=== PATIENT | male | born 1985 | race Caucasian/White ===

== ENCOUNTER 2019-09-18 19:24 | Inpatient (IN) | payer OTHER, MEDICAID ==
[~2019-09-18] VITALS: Ht 175.3 cm; Wt 78.0 kg
[~2019-09-18 19:24] MED LIST: GLYCOPYRROLATE 0.2 MG/ML VIAL ONE; LR 1,000 ML IV.SOLN IV ONE; MEPERIDINE HCL/PF 25 MG/ML DISP.SYRIN ONE; MIDAZOLAM HCL 5 MG/ML VIAL (VERSED) IV ONE; NEOSTIGMINE METHYLSULFATE 1 MG/ML, 10 ML VIAL ONE; NS IRRIG SOLN 1000 ML IR ONE; PROPOFOL 200MG/ 20ML VIAL (DIPRIVAN) IV ONE; ROCURONIUM BROMIDE 10 MG/ML (ZEMURON) ONE; SEVOFLURANE 15 MIN GAS INH ONE; fentaNYL CITRATE/PF 100 MCG/2 ML AMP ONE
[2019-09-18 20:00] VITALS: BP_SYST 122
--- NOTE | 2019-09-18 20:10 | NUR ---
Patient to ER bed 1 to gown for evaluation. Side rails up.
--- NOTE | 2019-09-18 20:20 | NUR ---
Dr. Bedoya bedside for pt eval
[2019-09-18] MEDS ORDERED: NACL 0.9% 1,000 ML IV ONE ×2 (20:25→21:27)
[2019-09-18] MEDS ORDERED: MORPHINE 4 MG/ML INJ. SYRINGE IVP ONE (20:30)
--- NOTE | 2019-09-18 20:30 | NUR ---
Pt LORE to ED with history of bipolar disorder, depression, and anxiety who was brought in by EMS from [facility] for evaluation of constipation for the past 2 weeks with recent nausea and vomiting today. The patient complains he has not had bowel movement in the last 2 weeks and has generalized abdominal distention and discomfort. He also reports several nonbloody/nonbilious vomiting episodes today. Per EMS, the patient voluntarily admitted himself to [facility] for SI. Upon examination, the patient was unable to account for his abdominal surgical scar
[2019-09-18 20:52] LABS: HEMOGLOBIN 16.5 g/dL (14.0-18.0)
[2019-09-18 20:56] LABS: HEMATOCRIT 47.5 % (36-54); MEAN CORPUSCULAR HEMOGLOBIN 29 pg (27-31); MEAN CORPUSCULAR HGB CONC 35 % (32-36); MEAN CORPUSCULAR VOLUME 83 fL (79.0-98.0); PLATELET COUNT (AUTO) 388 K/uL (130-430); RED BLOOD CELL COUNT(AUTO) 5.75 MIL/uL (4.2-6.2); RED CELL DISTRIBUTION WIDTH 14.1 % (9.0-15.0); WHITE BLOOD COUNT (AUTO) 23.1 K/uL (4.8-10.8)
[2019-09-18 21:03] LABS: INR 1.2 (0.80-1.20); PROTHROMBIN TIME 12.4 SECS (9.5-12.5)
[2019-09-18] MEDS ORDERED: CLINDAMYCIN 300 MG in D5W 50 ML IV ONE (21:30)
[2019-09-18] MEDS ORDERED: GENTAMICIN 120 mg/100 mL NS 100 ML IV ONE (21:30)
[2019-09-18] MEDS ORDERED: NS 1000 ML IV.SOLN IV ONE (21:30)
[2019-09-18 21:32] LABS: POTASSIUM 4.8 mmol/L (3.5-5.1)
[2019-09-18 21:33] LABS: CALCIUM 9.2 mg/dL (8.4-11.0)
[2019-09-18 21:34] LABS: CREATININE 2.56 mg/dL (0.55-1.30); TOTAL BILIRUBIN 0.7 mg/dL (0.0-1.0)
[2019-09-18 21:35] LABS: ALBUMIN 3.9 g/dL (3.4-4.8)
[2019-09-18] MEDS ORDERED: NACL 0.9% 1,000 ML IV SCH (21:44)
[2019-09-18] MEDS ORDERED: ACETAMINOPHEN 325 MG SUPP.RECT RC PRN (21:45)
[2019-09-18] MEDS ORDERED: ONDANSETRON HCL 4 MG/2 ML VIAL IVP PRN ×2 (21:45→23:15)
[2019-09-18] MEDS ORDERED: PANTOPRAZOLE SODIUM 40 MG/VIAL (PROTONIX) IVP ONE (21:45)
[2019-09-18] MEDS ORDERED: MOM PO (21:52)
[2019-09-18] MEDS ORDERED: VIS50 PO (21:52)
[2019-09-18] MEDS ORDERED: ESCI10TA PO (21:52)
[2019-09-18] MEDS ORDERED: OLAN20TA35 PO (21:52)
[2019-09-18] MEDS ORDERED: MAG-151 PO (21:52)
[2019-09-18] MEDS ORDERED: THOR25 PO (21:52)
[2019-09-18] MEDS ORDERED: ACET-2165 PO (21:52)
[2019-09-18] MEDS ORDERED: TRAZ-250 PO (21:52)
[2019-09-18] MEDS ORDERED: ACET325T53 PO (21:52)
[2019-09-18] MEDS ORDERED: LORA1TAB PO (21:52)
[2019-09-18] MEDS ORDERED: BEN50 PO (21:52)
[2019-09-18] MEDS ORDERED: PANT40TA4 PO (21:52)
--- NOTE | 2019-09-18 21:53 | NUR ---
Medication reconciliation completed with information provided by Juanita Sanchez. Any prior medication reconciliation on file was reviewed and corrected.
[2019-09-18] MEDS ORDERED: TOLVAPTAN 15 MG TABLET PO ONE (22:00)
--- NOTE | 2019-09-18 22:02 | NUR ---
Patient will be admitted to care of Dr. Lopez. Admitted to OR unit. Waiting surgical team. Belongings list completed. Complete and up to date summary report printed. SBAR report to be given at bedside with opportunity for questions.
[2019-09-18 22:05] LABS: ATYPICAL LYMPHOCYTES % 0 % (0-0); BAND % (MANUAL) 5 % (0-6); BASOPHILS % (MANUAL) 0 % (0-2); EOSINOPHILS % (MANUAL) 0 % (0-7); LYMPHOCYTES % (MANUAL) 7 % (20-46); MONOCYTES % (MANUAL) 7 % (0-11)
[2019-09-18] MEDS ORDERED: metroNIDAZOLE 500 mg/NS 100 ML IV SCH (22:15)
[2019-09-18] MEDS ORDERED: CLINDAMYCIN PHOSPHATE 300 MG/2 ML VIAL ONE (22:17)
[2019-09-18 22:36] LABS: CREATINE KINASE MB 5.7 ng/mL (0-3.6)
[2019-09-18 22:37] LABS: CKMB RELATIVE INDEX 1.2 (0.0-2.9)
[2019-09-18] MEDS ORDERED: fentaNYL CITRATE/PF 100 MCG/2 ML AMP IVP PRN (23:15)
[2019-09-19] VITALS (17 sets, daily range): BP systolic 113–160
[2019-09-19] MEDS ORDERED: ONDANSETRON HCL 4 MG/2 ML VIAL IVP PRN
[2019-09-19] MEDS: fentaNYL CITRATE/PF 100 MCG/2 ML AMP IVP PRN ×2 (00:31→00:41)
[2019-09-19] MEDS ORDERED: fentaNYL CITRATE/PF 100 MCG/2 ML AMP ONE (00:45)
--- NOTE | 2019-09-19 00:55 | NUR ---
ADMISSION NOTE Received patient from ER via [facility] under the care of Dr. Womack. Patient admitted with diagnosis of Ovarian Cyst. Patient is awake, alert, oriented X 4. Patient oriented to hospital room, call light, toileting, pain management and safety-teach back done. Patient informed that his nurse will be Melissa ALEXANDER and that their room number is 104A. Call light within reach. Will continue to monitor patient.
[2019-09-19] MEDS: MORPHINE 4 MG/ML INJ. SYRINGE IVP PRN ×6 (01:15→20:33)
--- NOTE | 2019-09-19 01:15 | NUR ---
PAIN MGT PATIENT MEDICATED WITH MORPHINE 4 MG FOR C/O ABDOMINAL PAIN ORDERED. VITAL SIGNS STABLE. ABDOMINAL DRESSING DRY AND INTACT NO BLEEDING NOTED. IVF NS @ 100 ML/HR INFUSING WITH IV LINE INTACT AND PATENT.
[2019-09-19] MEDS: NACL 0.9% 1,000 ML IV SCH ×3 (01:19→12:35)
[2019-09-19] MEDS ORDERED: metroNIDAZOLE 500 mg/NS 100 ML IV ONE (02:08)
[2019-09-19] MEDS: PIPERACILLIN/TAZO 3.375 GM in NS 50 ML IV SCH ×4 (02:09→18:24)
[2019-09-19] MEDS ORDERED: PIPERACILLIN/TAZOBACTAM 3.375 GM/VIAL (ZOSYN) IV ONE (02:09)
--- NOTE | 2019-09-19 03:00 | NUR ---
ATB PATIENT STARTED ON NEW ANTIBIOTIC ZOSYN AND FLAGYL ORDERED.
--- NOTE | 2019-09-19 04:30 | NUR ---
24 HR URINE 24 HOUR URINE COLLECTION FOR SODIUM STARTED ORDERED.
--- NOTE | 2019-09-19 04:58 | NUR ---
PAIN MGT PATIENT MEDICATED WITH MORPHINE FOR C/O ABDOMINAL PAIN. IV LINE INTACT AND PATENT.
--- NOTE | 2019-09-19 05:29 | NUR ---
Consultation Paged Reason for Consultation: ARF Severe Hyponatremia Was consult called:Y Person who was notified: Daphne Consulting Physician: David Hsieh Location Analyst Ordering Physician: Dr. Lopez
--- NOTE | 2019-09-19 05:38 | NUR ---
Consultation Paged Reason for Consultation: Suicidal, sent from [facility] Was consult called:Y Person who was notified: Daphne Consulting Physician: Dr. Melendrez Ordering Physician: Dr. Lopez
[2019-09-19 06:30] LABS: BILIRUBIN,URINE NEGATIVE (NEGATIVE); CLARITY/URINE CLEAR (CLEAR); COLOR,URINE YELLOW (YELLOW); GLUCOSE,URINE NEGATIVE (NEGATIVE); KETONES,URINE NEGATIVE (NEGATIVE); LEUKOCYTE ESTERASE ,URINE NEGATIVE (NEGATIVE); NITRITE, URINE NEGATIVE (NEGATIVE); PH,URINE 5.5 (5.0-8.0); PROTEIN URINE NEGATIVE (NEGATIVE); UROBILINOGEN,URINE 0.2 (0.2-1.0)
[2019-09-19 06:38] LABS: BLOOD, URINE TRACE (NEGATIVE)
[2019-09-19 06:48] LABS: BARBITURATE, URINE NEGATIVE (NEG <=200); BENZODIAZEPINE, URINE NEGATIVE (NEG <=150); CANNABINOID, URINE NEGATIVE (NEG <=50); COCAINE, URINE NEGATIVE (NEG <=150); METHAMPHETAMINES SCREEN,URINE NEGATIVE (NEG <=500); OPIATE, URINE POSITIVE (NEG <=100); PHENCYCLIDINE SCREEN,URINE NEGATIVE (NEG <=25); UR TRICYCLIC ANTIDEPRESSANTS NEGATIVE (NEG <=300); URINE AMPHETAMINE NEGATIVE (NEG <=500); URINE METHADONE NEGATIVE (NEG <=200); URINE OXYCODONE SCREEN NEGATIVE (NEG <=100); URINE PROPOXYPHENE SCREEN NEGATIVE (NEG <=300)
[2019-09-19 07:05] LABS: BACTERIA,URINE FEW /HPF (None Seen); RBC,URINE 0-3 /HPF (0-3); WBC,URINE 0-3 /HPF (0-3)
--- NOTE | 2019-09-19 07:30 | NUR ---
OPENING NOTES: RECEIVED PATIENT FROM EEG TECHNOLOGIST NURSE. PATIENT IS ASLEEP LAYING DOWN IN BED. PATIENT IS TOLERATING OXYGEN ON ROOM AIR WITH NO SIGNS OF DISTRESS OR SHORTNESS OF BREATH NOTED. IV SITE IS PATENT WITH NO SIGNS OF INFILTRATION NOTED. ESPINO CATHETER INTACT AND DRAINING BY GRAVITY. PATIENT IN STABLE CONDITION. SAFETY, FALL AND ASPIRATION PRECAUTIONS ARE IN PLACE. BED LOCKED IN LOWEST POSITION WITH CALL LIGHT IN REACH. WILL CONTINUE TO MONITOR PATIENT FOR ANY CHANGES.
--- NOTE | 2019-09-19 07:37 | NUR ---
ID consult called: for Dr. Cohen, regarding sepsi/ischemic bowel/status post surgery, ordered by Dr. Lopez, spoke Rosa M.
--- NOTE | 2019-09-19 07:37 | NUR ---
CLOSING NOTES PATIENT AWAKE IN BED. NO DISTRESS NOTED. ABDOMINAL DRESSING DRY AND INTACT. IVF INFUSING. CALL LIGHT WITH IN REACH.
--- NOTE | 2019-09-19 09:01 | NUR ---
Nutrition Update Anthony Scale 18 noted. Pt admitted for acute abd ischemic bowel. Diet: NPO BMI: 25.4 kg/m2 RD to follow per nutrition care standards.
[2019-09-19] MEDS: OLANZapine 10 MG TABLET PO SCH (09:21)
--- NOTE | 2019-09-19 10:15 | NUR ---
RN ROUNDS: PATIENT IS AWAKE AND ALERT x4 LAYING DOWN IN BED. PATIENT STATES HIS PAIN IS GETTING BETTER. NO SIGNS OF DISTRESS OR SHORTNESS OF BREATH NOTED. PATIENT IN STABLE CONDITION. WILL CONTINUE TO MONITOR PATIENT FOR ANY CHANGES.
[2019-09-19 10:24] LABS: BASOPHILS % (AUTO) 0.1 % (0.0-2.0); HEMATOCRIT 43.4 % (36-54); HEMOGLOBIN 14.5 g/dL (14.0-18.0); LYMPHOCYTES # (AUTO) 0.5 K/uL (1.0-5.5); LYMPHOCYTES % (AUTO) 2.7 % (20.5-51.5); MEAN CORPUSCULAR HEMOGLOBIN 28 pg (27-31); MEAN CORPUSCULAR HGB CONC 33 % (32-36); MEAN CORPUSCULAR VOLUME 85 fL (79.0-98.0); MONOCYTES # (AUTO) 0.5 K/uL (0.0-1.0); MONOCYTES % (AUTO) 2.4 % (1.7-9.3); NEUTROPHILS # (AUTO) 18.1 K/uL (1.8-7.7); NEUTROPHILS % (AUTO) 94.8 % (40.0-70.0); PLATELET COUNT (AUTO) 307 K/uL (130-430); RED BLOOD CELL COUNT(AUTO) 5.11 MIL/uL (4.2-6.2); RED CELL DISTRIBUTION WIDTH 13.7 % (9.0-15.0); WHITE BLOOD COUNT (AUTO) 19.1 K/uL (4.8-10.8)
[2019-09-19 10:39] LABS: ALBUMIN 2.7 g/dL (3.4-4.8); CALCIUM 7.8 mg/dL (8.4-11.0); CREATININE 1.32 mg/dL (0.55-1.30); POTASSIUM 3.5 mmol/L (3.5-5.1); TOTAL BILIRUBIN 0.7 mg/dL (0.0-1.0)
--- NOTE | 2019-09-19 11:49 | NUR ---
SS NOTES: MALT LIQUORS SALES SUPERVISOR attempted to meet with patient for assessment. Pt asked to be seen later today (he was just given medications). Pt stated he came from [facility] from a voluntary admission due to Suicidal ideation. Pt denies having thoughts of hurting self and others currently. Pt has a psychiatric diagnoses of bipolar and depression and is taking medications prescribed by his unknown psychiatrist. MALT LIQUORS SALES SUPERVISOR encouraged pt to notify nurses if feeling suicidal, pt agreed.
--- NOTE | 2019-09-19 12:10 | NUR ---
Telephone order received from Dr. Crouch stated continue current IVF NS @100ml/hr, 4 pm blood draw chem 7, if sodium level still low call me then start 3% NACL @ 25ml/hr. order carried out.
[2019-09-19] MEDS ORDERED: SODIUM CHLORIDE 3% *HI-ALERT* 500 ML IV SCH (12:15)
--- NOTE | 2019-09-19 12:18 | NUR ---
Received patient from [facility]. pt alert, awake, oriented, complained of abdominal pain at incision area 7/10 scale sharp medicated with morphine 4 mg ivp. vital sign stable, afebrile. updated about the POC. verbalized understanding. continue ivf ns @ 100ml/hr, per dr. Crouch telephone ordered. lung sound clear and nonlabored. room air saturation 96%. iv access at left ac #20 sl and left wrist #22 ivf infusing. both patent and intact. abdominal incision with dressing on. intact. no active bleeding noted. bowel sound hypoactive. denies passing gas. jeronimo catheter draining y Addendum: 09/19/19 at 1444 by Gina Vanegas RN morphine administered at 1230.
--- NOTE | 2019-09-19 12:24 | NUR ---
TRANSFERRED TO ICU: PATIENT TRANSFERRED TO BED 4 IN ICU. REPORT GIVEN AT BEDSIDE. ALL BELONGINGS SENT WITH PATIENT. PATIENT IN STABLE CONDITION.
--- NOTE | 2019-09-19 14:00 | NUR ---
Patient is able to reposition self in bed and is encouraged to request assistance when needed.
[2019-09-19] MEDS: metroNIDAZOLE 250 mg/NS 50 ML IV SCH ×2 (14:29→21:06)
--- NOTE | 2019-09-19 16:10 | NUR ---
MD Rounds: seen by dr. beckett at the bedside. updated about the poc.
[2019-09-19 16:33] LABS: CREATININE 1.18 mg/dL (0.55-1.30); POTASSIUM 3.7 mmol/L (3.5-5.1)
--- NOTE | 2019-09-19 16:40 | NUR ---
patient complained of abdominal pain at the incision area 7/10 scale sharp. medicated with morphine 4 mg ivp. vital stable, afebrile. informed about the risk and benefits pt verbalized understanding. will monitor.
--- NOTE | 2019-09-19 17:20 | NUR ---
Received telephone Order from Dr. Wong informed NA 121 from 112. stated d/c current ivf until next blood draw @ 8pm. call for result.
[2019-09-19] MEDS ORDERED: 0.45% NACL 1,000 ML IV SCH (17:30)
--- NOTE | 2019-09-19 18:52 | NUR ---
all needs mets. no s/s of distress. vital sign stable, afebrile. pt updated about the poc. no other concerned noted, able to do IS until 500ml. encourage to do 10x hr while awake. verbalized understanding.
--- NOTE | 2019-09-19 19:15 | NUR ---
change of shift.pt.presents quiescent affect;calm,resting.pt.presents s/p surgery status;abdomen incision.surgery dsg intact absent drainage. no drains present.pt.presents iv access x2 peripheral lines;lt.hand receiving the administration of the iv fluids.pt.presets jeronimo cath.24hr urine collection in progress.due for completion; @0430a.call light w/in reach of the pt.
--- NOTE | 2019-09-19 20:00 | NUR ---
pt.assessed.v/s assessed;values w/in normal limits.pt.presents affect;quiescent loc;confused.no c/o pain,nausea. surgery dsg assessed intact absent drainage.iv access intact patent.iv fluids;n2 infusing@the rate;10ml/hr.pt to lab drawn;er;na+level.to trista hewitt;luna/trinh.to f/u.jeronimo cath intact patent urine content present.diet status; pt.remains npo;ice chip[s ok.pt.assessed for cleanliness.pt.repositioned.call light./placed w/in reach of pt.pt.refused to have the tv on.
--- NOTE | 2019-09-19 20:30 | NUR ---
pt.had requested medication;riggins.i have administered morphine;4mg ivp;to re-assess the medication efficacy per pain mgx protocol. no additional requests posited@this hour.
--- NOTE | 2019-09-19 21:00 | NUR ---
2100p medication:flagyl;abx;ivpb administered via peripheral line.
[2019-09-19 21:07] LABS: CALCIUM 8.2 mg/dL (8.4-11.0); CREATININE 1.13 mg/dL (0.55-1.30); POTASSIUM 3.6 mmol/L (3.5-5.1)
--- NOTE | 2019-09-19 21:15 | NUR ---
per niraj;rn/chg paged and apprised of the pt's na+level;low value.122meq's. ordered iv fluids:d5/45ns administered @the rate:70ml/hr.
--- NOTE | 2019-09-19 21:20 | NUR ---
DR. RADHA MASON MADE AWARE OF PT BMP AT THIS TIME. ORDERS RECEIVED AND WILL BE CARRIED OUT ORDERED.
[2019-09-19] MEDS: D5/0.45 NS 1,000 ML IV SCH (21:41)
--- NOTE | 2019-09-19 21:45 | NUR ---
i have initiated the administration iv fluids;d5/45ns @the rate;70ml/hr. Addendum: 09/19/19 at 2236 by Ric Fajardo RN iv fluids administered via picc line;location;rt.[email or web address].
--- NOTE | 2019-09-19 22:00 | NUR ---
pt.assessed.v/s assessed;values w/in normal limits.pt.presents quiescent affect;calm,somnolent.per pain mgx;flacc pt.absent facial grimaces/body posturing.pt.assessed for cleanliness.pt.repositioned.iv access intact patent iv fluids infusing.jeronimo cath intact patent urine content present.call light placed w/in reach of the pt.
[2019-09-20] VITALS (20 sets, daily range): BP systolic 127–158
--- NOTE | 2019-09-20 | NUR ---
pt.assessed.v/s assessed;values w/in normal limits.no c/o pain,nausea.pt.assessed for cleanliness.pt.repositioned.iv access intact patent iv fluids infusing.jeronimo cath intact patent urine content present;24hrs urine collection in progress.absent interruptions.lab to draw bmp sample@ 0000;to convey na+level to .
[2019-09-20] MEDS: PIPERACILLIN/TAZO 3.375 GM in NS 50 ML IV SCH ×5 (00:04→23:26)
--- NOTE | 2019-09-20 00:30 | NUR ---
pt.had requested medication;pain.i have administered morphine:4mg ivp.to re-assess the pain medication efficacy per pain mgx protocol.no additional requests posited@this hour.
[2019-09-20 00:39] LABS: CALCIUM 8.2 mg/dL (8.4-11.0); CREATININE 1.08 mg/dL (0.55-1.30); POTASSIUM 3.6 mmol/L (3.5-5.1)
[2019-09-20] MEDS: MORPHINE 4 MG/ML INJ. SYRINGE IVP PRN ×5 (00:40→21:07)
--- NOTE | 2019-09-20 01:00 | NUR ---
per sergey;rn/chg paged apprised of the midnight na+ level; has ordered to maintain current iv fluids; d5/45ns @the vxfp28cp/hr.to draw 0400a lab samples@0500a w/additional lab samples.
--- NOTE | 2019-09-20 02:00 | NUR ---
pt.assessed.v/s assessed;values w/in normal limits;o2-sat%=91%;low value.iv access intact patent iv fluids infusing. jeronimo cath intact patent;i have attended to the jeronimo cath:measured/emptied.24hrs;urine collection in progress;absent interruption.pt.assessed for cleanliness. pt.repositioned.call light placed w/in reach of the pt.
--- NOTE | 2019-09-20 04:00 | NUR ---
pt.assessed.v/s assessed;values w/in normal limits.o2-sat%=89%.remains low.pt.requested to deep breath pattern; excercises. no c/o pain,nausea.iv aces intact patent iv fluids infusing.jeronimo cath intact patent urine content present.pt.assessed for cleanliness.pt. repositioned.call light placed w/in reach of the pt.
[2019-09-20 04:08] LABS: BASOPHILS % (AUTO) 0.1 % (0.0-2.0); EOSINOPHILS % (AUTO) 0.1 % (0.0-4.0); HEMOGLOBIN 13.9 g/dL (14.0-18.0); LYMPHOCYTES # (AUTO) 1.1 K/uL (1.0-5.5); LYMPHOCYTES % (AUTO) 11.3 % (20.5-51.5); MEAN CORPUSCULAR HEMOGLOBIN 29 pg (27-31); MEAN CORPUSCULAR HGB CONC 33 % (32-36); MEAN CORPUSCULAR VOLUME 86 fL (79.0-98.0); MONOCYTES # (AUTO) 0.5 K/uL (0.0-1.0); NEUTROPHILS # (AUTO) 8.4 K/uL (1.8-7.7); NEUTROPHILS % (AUTO) 83.5 % (40.0-70.0); PLATELET COUNT (AUTO) 310 K/uL (130-430); RED BLOOD CELL COUNT(AUTO) 4.87 MIL/uL (4.2-6.2); RED CELL DISTRIBUTION WIDTH 13.8 % (9.0-15.0); WHITE BLOOD COUNT (AUTO) 10.1 K/uL (4.8-10.8)
[2019-09-20 04:27] LABS: ALBUMIN 2.5 g/dL (3.4-4.8); CALCIUM 8.3 mg/dL (8.4-11.0); CREATININE 1.13 mg/dL (0.55-1.30); POTASSIUM 3.4 mmol/L (3.5-5.1); TOTAL BILIRUBIN 0.6 mg/dL (0.0-1.0)
--- NOTE | 2019-09-20 04:30 | NUR ---
24 hr urine collection completed.i have taken the jugs x2 to the lab.
[2019-09-20] MEDS: metroNIDAZOLE 250 mg/NS 50 ML IV SCH ×3 (05:02→21:07)
[2019-09-20] MEDS ORDERED: MORPHINE 4 MG/ML INJ. SYRINGE ONE (05:09)
--- NOTE | 2019-09-20 05:32 | NUR ---
DR. RADHA MASON MADE AWARE OF PT LATEST BMP RESULTS. NO CHANGES IN ORDERS AT THIS TIME. PER MD CONTINUE Q4H BMP. WILL CONTINUE TO MONITOR PT.
--- NOTE | 2019-09-20 06:30 | NUR ---
pt.assessed.pt.presents quiescent affect;calm,resting.v/s assessed;values w/in normal limits;o2-sat%=92%breathing pattern/character unlabored.re-iterated to the pt.to perform breathing excersises;deep breathing.iv access intact patent iv fluids infusing.jeronimo cath intact patent urine content present.pt.assessed for cleanliness.pt.repositioned.per sergey;rn/chg paged and apprised of lab results;na+level;low value;123/k+Level;3.4,no new orders per to continue to monitor the bmp q-4hrs.call light placed w/in the reach of the pt. Addendum: 09/20/19 at 0703 by Ric Fajardo RN present assessing the pt. inquired about the pt's general affect.i apprised the that the pt's affect was calm w/in the shift no manifestations of aggression/restlessness. did not provide new orders.
--- NOTE | 2019-09-20 07:10 | NUR ---
Endorsement received from night RN using SBAR.
--- NOTE | 2019-09-20 08:00 | NUR ---
Pt resting with signs of pain. Lane with urine noted. Pt also complains of being hungry. Bed locked and in lowest position.
[2019-09-20] MEDS: OLANZapine 10 MG TABLET PO SCH (08:21)
[2019-09-20] MEDS: fentaNYL CITRATE/PF 100 MCG/2 ML AMP IVP PRN (08:22)
--- NOTE | 2019-09-20 08:45 | NUR ---
Dr Plummer bedside. Remove surgical dressing. Margins clean and pink with no signs of infection. Per MD to leave incision site open to air. Cleansed with NS. Will continue to monitor.
[2019-09-20 08:59] LABS: CALCIUM 8.5 mg/dL (8.4-11.0); CREATININE 1.11 mg/dL (0.55-1.30); POTASSIUM 3.4 mmol/L (3.5-5.1)
--- NOTE | 2019-09-20 11:00 | NUR ---
Picture taken of incision and placed in PT chart.
--- NOTE | 2019-09-20 12:41 | NUR ---
DCPA and SS contact: COMPUTER TERMINAL OPERATOR met with patient for DCPA and social service contact. Pt was alert, somewhat tired and sleepy but able to communicate and give reasonable responses. Pt. reported that he was living in a sober living facility for 5 months [address] [facility] , prior to voluntary admission to [facility] for depression and anxiety. He decline discuss substance abuse Hx at this time. He denied any presents S/I or H/I. Supports himself through [employer], he has [employer] insurance and Medicare part A only. Pt. reported that he was able to attend to his own ADLS and care for self independently, he did not utilize any DME, no Hx of SNF or HH in the past. He is currently recovering from a surgery and appear to be in discomfort. Pt reported that he does not have a PCP assigned and has not been getting regular medical care. He reported that he could return to his sober living program after DC from hospital but was unsure if he wanted to yet maybe Ill go back to [facility], not sure. He was not interested in social studies department chair referrals at this time I can it from [facility] if I need help, thanks. pt, had no further inquiry or concern at this time. Tentative DC plan at this time is to return to sober living facility. Pt. advised that CM/SS/ DCP will remain available to him should the need arise.
[2019-09-20 12:58] LABS: CALCIUM 8.6 mg/dL (8.4-11.0); CREATININE 1.05 mg/dL (0.55-1.30); POTASSIUM 3.1 mmol/L (3.5-5.1)
[2019-09-20] MEDS ORDERED: POTASSIUM CHLORIDE 30 MEQ in NS 250 ML IV ONE (13:30)
[2019-09-20] MEDS ORDERED: BENZOCAINE/MENTHOL 1 EACH LOZENGE MM PRN (13:30)
[2019-09-20] MEDS: D5/0.45 NS 1,000 ML IV SCH (13:45)
--- NOTE | 2019-09-20 14:05 | NUR ---
Dr Crouch called back from page. Asked about NACL 3% for administration. Per Dr Crouch to RANDY, read back and confirmed. DC'd in [employer].
--- NOTE | 2019-09-20 14:12 | NUR ---
Dietitian Recommendations * Recommend continuing clear liquid diet * Encourage increase PO intakes * Consider advance to soft (low fiber/bland) diet w/ Ensure Enlive BID if/when medically appropriate LP, RD Please refer to Nutrition Assessment for details. Addendum: 09/20/19 at [address] Amended: Links added.
--- NOTE | 2019-09-20 17:00 | NUR ---
Endorsement given to MST RN using SBAR via telephone.
--- NOTE | 2019-09-20 17:20 | NUR ---
Transferred pt via wheelchair to [facility]. Une[facility].
--- NOTE | 2019-09-20 17:28 | NUR ---
continuation of care patient is awake and alert sitting up in bed no signs of any distress, breathing is equal and non labored. patient educated senior controls technician light, call light is with him. educated on IS able to inspire 1000. patient has no complaints at this time. abdomen open to room air no signs of active bleeding. no other needs at this time.
--- NOTE | 2019-09-20 19:30 | NUR ---
OPENING NOTE Bedside report received from dayshift nurse. Patient received lying in bed, no s/s of acute distress noted. Breathing even and unlabored. IVF infusing well. No bleeding noted on abdomen, CORA, 11 linus noted. Call light with patient. Bed alarm on. Will continue to monitor.
--- NOTE | 2019-09-20 19:35 | NUR ---
rn closing note report endorsed to night nurse. all safety precautions in place. no other needs at this time. surgical incision is clean dry and no signs of active bleeding.
--- NOTE | 2019-09-20 21:07 | NUR ---
PAIN Patient complained of pain, PRN medication administered. Will continue to monitor and reassess.
[2019-09-20] MEDS: IPRATROPIUM/ALBUTEROL SULFATE 3 ML AMPUL.NEB (DUONEB) INH SCH (22:00)
[2019-09-20 22:49] LABS: COLLECTION TIME,URINE 24 HR; TOTAL VOLUME 24HRS,URINE 3300 mL
[2019-09-20 22:50] LABS: SODIUM TIMED,URINE 17 mmol/L
[2019-09-20 22:51] LABS: SODIUM URINE, 24HR CALC 56 mmol/24H (40-220)
--- NOTE | 2019-09-20 23:00 | NUR ---
ROUNDS Patient asleep at this time. No s/s of acute distress noted. Breathing even and unlabored. IVF infusing well. Lane attached, secured, and draining by gravity. Bed alarm on. Call light with patient. Will continue to monitor.
[2019-09-21] VITALS: BP_SYST 132
[2019-09-21] MEDS: MORPHINE 4 MG/ML INJ. SYRINGE IVP PRN ×3 (01:07→09:04)
--- NOTE | 2019-09-21 01:07 | NUR ---
PAIN Patient complained of 7/10 abdominal pain. PRN medication administered. Will continue to monitor and reassess. Call light with patient,.
[2019-09-21] MEDS: D5/0.45 NS 1,000 ML IV SCH ×2 (02:06→09:07)
--- NOTE | 2019-09-21 03:00 | NUR ---
ROUNDS Patient asleep at this time. No s/s of acute distress. Breathing is even and unlabored. IVF infusing well. Call light with patient. Bed alarm on. Will continue to monitor.
--- NOTE | 2019-09-21 05:00 | NUR ---
ROUNDS Patient in bed sleeping at this time. No signs of discomfort noted. Chest rise and fall even bilaterally. All needs met at this time. Call light with patient. Bed alarm on. Will continue to monitor.
[2019-09-21] MEDS: PIPERACILLIN/TAZO 3.375 GM in NS 50 ML IV SCH ×4 (05:04→22:59)
[2019-09-21] MEDS: metroNIDAZOLE 250 mg/NS 50 ML IV SCH ×3 (05:45→21:44)
--- NOTE | 2019-09-21 06:28 | NUR ---
CLOSING NOTES Patient in bed sleeping at this time. NO s/s of acute distress noted. Breathing is even and unlabored. IVF infusing well, IV site is patent, no signs of infiltration or infection noted. Lane attached, secured, and draining by gravity. All needs met throughout shift. Fall and safety precautions maintained throughout shift. Will continue to monitor until patient care is endorsed to oncoming dayshift nurse.
[2019-09-21] MEDS: IPRATROPIUM/ALBUTEROL SULFATE 3 ML AMPUL.NEB (DUONEB) INH SCH ×3 (07:20→21:38)
[2019-09-21 07:24] LABS: BASOPHILS % (AUTO) 0.1 % (0.0-2.0); EOSINOPHILS # (AUTO) 0.1 K/uL (0.0-0.4); EOSINOPHILS % (AUTO) 0.8 % (0.0-4.0); HEMATOCRIT 38.2 % (36-54); HEMOGLOBIN 12.8 g/dL (14.0-18.0); LYMPHOCYTES # (AUTO) 1.2 K/uL (1.0-5.5); LYMPHOCYTES % (AUTO) 12.4 % (20.5-51.5); MEAN CORPUSCULAR HEMOGLOBIN 29 pg (27-31); MEAN CORPUSCULAR HGB CONC 34 % (32-36); MEAN CORPUSCULAR VOLUME 87 fL (79.0-98.0); MONOCYTES # (AUTO) 0.9 K/uL (0.0-1.0); MONOCYTES % (AUTO) 8.8 % (1.7-9.3); NEUTROPHILS # (AUTO) 7.7 K/uL (1.8-7.7); NEUTROPHILS % (AUTO) 77.9 % (40.0-70.0); PLATELET COUNT (AUTO) 283 K/uL (130-430); RED BLOOD CELL COUNT(AUTO) 4.38 MIL/uL (4.2-6.2); RED CELL DISTRIBUTION WIDTH 13.9 % (9.0-15.0); WHITE BLOOD COUNT (AUTO) 9.9 K/uL (4.8-10.8)
[2019-09-21 07:43] LABS: ALBUMIN 2.3 g/dL (3.4-4.8); CALCIUM 8.4 mg/dL (8.4-11.0); POTASSIUM 3.2 mmol/L (3.5-5.1); THYROID STIMULATING HORMONE 1.66 uIu/mL (0.36-3.74); TOTAL BILIRUBIN 0.5 mg/dL (0.0-1.0)
--- NOTE | 2019-09-21 07:50 | NUR ---
INITIAL NOTE RECEIVED PT IN BED, NO S/S OF DISTRESS OR SOB NOTED, PT HAS NO C/O PAIN AT THIS TIME, PT IN STABLE CONDITION. PT AAOX4, VERBAL. IV CATHETERS PATENT, NO SIGNS OF INFECTION OR INFILTRATION NOTED, ONE IS RUNNING IV FLUIDS ORDERED AND OTHER IS SALINE LOCK. BED AT LOWEST POSITION, CALL LIGHT WITHIN REACH, WILL CONTINUE TO MONITOR PT FOR ANY CHANGES. FALL AND SAFETY PRECAUTIONS IN PLACE. EDUCATED PT ON USE OF INCENTIVE SPIROMETER, PT TO USE 10 TIMES AN HOUR WHILE AWAKE, PT VERBALIZED UNDERSTANDING, PT AT 1000ML.
[2019-09-21 08:40] VITALS: BP_SYST 130
[2019-09-21] MEDS: OLANZapine 10 MG TABLET PO SCH (09:03)
--- NOTE | 2019-09-21 10:30 | NUR ---
ROUNDS PT IN BED, NO S/S OF DISTRESS OR SOB NOTED, PT IN STABLE CONDITION, PT RESTING COMFORTABLY. WILL CONTINUE TO MONITOR PT FOR ANY CHANGES. PT HAS NO C/O PAIN AT THIS TIME.
[2019-09-21] MEDS: D5NS 1,000 ML IV SCH (11:42)
--- NOTE | 2019-09-21 11:48 | NUR ---
PT PT WALKED WITH PHYSICAL THERAPY WITH WALKER, PT HAS WEAKNESS BUT WAS ABLE TO AMBULATE, PT TOLERATED.
--- NOTE | 2019-09-21 12:05 | NUR ---
ROUNDS PT IN BED, NO S/S OF DISTRESS OR SOB NOTED, PT IN STABLE CONDITION, PT RESTING COMFORTABLY. WILL CONTINUE TO MONITOR PT FOR ANY CHANGES. PT HAS NO C/O PAIN AT THIS TIME. PT WATCHING TV.
--- NOTE | 2019-09-21 12:06 | NUR ---
MD CALL PAGED DR WARNER, AWAITING CALL BACK. TO NOTIFY HIM THAT PATIENT'S ABD IS DISTENDED BUT PT HAS PASSED GAS. Addendum: 09/21/19 at 1700 by Ekaterina Ware RN SPOKE WITH AND PER TO PUT PT ON CLEAR LIQUID DIET AND ENCOURAGE AMBULATION
[2019-09-21 12:10] VITALS: BP_SYST 140
[2019-09-21] MEDS: ACETAMINOPHEN/CODEINE 300 MG-30 MG TABLET PO PRN ×3 (13:37→21:45)
--- NOTE | 2019-09-21 15:10 | NUR ---
DC Planning: per dr. Melendrez: continue zyprexa 10 mg daily, and dr. Derian Phelan todc with PO augmentin and Flagyl X 7 days. PT : ambulates 40 feet with FWW GENERALIZED WEAKNESS, FEAR OF FALLING.-- Per BENJAMIN Terrazas's : pt's abd distended, not ready for discharge.
[2019-09-21 15:59] VITALS: BP_SYST 143
--- NOTE | 2019-09-21 16:56 | NUR ---
GEN SURGEON DR Pete WARNER WAS CALLED RE: ORDER TO DC KENZIE. SPOKE TO DENNY
--- NOTE | 2019-09-21 17:00 | NUR ---
MD CALL SPOKE WITH DR WARNER IN REGARDS TO D/C OF ESPINO CATHETER, PER MD TO D/C AND ENCOURAGE AMBULATION, SPOKE WITH MD IN REGARDS TO PAIN MANAGEMENT, EDUCATION OF PT TO STOP MORPHINE IVP AND START ORAL INSTEAD, PT HAS TYLENOL NUMBER 3 ORDERED AND TOOK IT THIS AFTERNOON.
--- NOTE | 2019-09-21 17:41 | NUR ---
F/C D/C ESPINO CATHETER D/C, NO ACTIVE BLEEDING NOTED, CATHETER INTACT, BLADDER NON DISTENDED, EDUCATED PT TO LET NURSE KNOW WHEN HE FIRST VOIDS.
[2019-09-21] MEDS ORDERED: MORPHINE 4 MG/ML INJ. SYRINGE IVP PRN (17:45)
[2019-09-21] MEDS ORDERED: POTASSIUM CHLORIDE 40 MEQ, LIDOCAINE JECT 2% PF 100 MG 50 MG in NS 250 ML IV ONE (17:45)
--- NOTE | 2019-09-21 18:41 | NUR ---
CLOSING NOTE PT IN BED, NO S/S OF DISTRESS OR SOB NOTED, PT HAS NO C/O PAIN AT THIS TIME, PT IN STABLE CONDITION. PT AAOX4, VERBAL. IV CATHETERS PATENT, NO SIGNS OF INFECTION OR INFILTRATION NOTED, ONE IS RUNNING IV FLUIDS ORDERED AND OTHER IS SALINE LOCK. BED AT LOWEST POSITION, CALL LIGHT WITHIN REACH, WILL ENDORSE CARE OF PT TO INCOMING NURSE FALL AND SAFETY PRECAUTIONS IN PLACE. PT HAD TO BE RE EDUCATED ON USING THE INCENTIVE SPIROMETER, PT CONTINUES TO BE AT 1000ML. EDUCATED PT ON PAIN MANAGEMENT EARLIER AND PT IS NOW ON TYLENOL #3 AND WAS ENCOURAGED TO WALK WITH ASSIST TO ENCOURAGE BOWEL MOVEMENT.
--- NOTE | 2019-09-21 19:15 | NUR ---
OPENING NOTE: Bedside report received from dayshift nurse. Patient received lying in bed, no s/s of acute distress noted. Breathing even and unlabored. IVF infusing well. No bleeding noted on abdomen, CORA, 11 linus noted. Call light with patient. Bed alarm on. Will continue to monitor.
[2019-09-21 20:05] VITALS: BP_SYST 135
[2019-09-21] MEDS ORDERED: KCL 20 mEq in 100 mL (PREMIX) 0 ML IV ONE (20:44)
--- NOTE | 2019-09-21 21:45 | NUR ---
PAIN: Pt c/o abd pain prn medication administered at this time. Will continue to monitor and reassess.
[2019-09-21] MEDS ORDERED: KCL 40 mEq in 100 mL (PREMIX) 100 ML IV ONE (22:25)
[2019-09-21] MEDS ORDERED: LIDOCAINE JECT 2% PF 100 MG/5ML SYRINGE ONE (22:31)
--- NOTE | 2019-09-21 23:21 | NUR ---
Paged Dr. Lopez [phone], s/w Fer
[2019-09-21] MEDS ORDERED: LORazepam 2 MG/ML VIAL IVP ONE (23:30)
[2019-09-22] VITALS: BP_SYST 136
--- NOTE | 2019-09-22 | NUR ---
SPOKE WITH DR TAN RE: RETENTION/SLEEPING PILL made aware, patient requesting for something to help him sleep, MD ordered 0.5 mg Ativan IVP one time. Also MD made aware patient is retaining 597 ml as per bladder scan, MD ordered insert Lane. Alne inserted at this time, patient tolerated well, 200 ml tameka urine immediate return, Lane bag secured, draining by gravity, UA collected and dropped off to lab. All needs met at this time. Call light with patient. Bed alarm on. Will continue to monitor.
[2019-09-22 00:46] LABS: BILIRUBIN,URINE NEGATIVE (NEGATIVE); BLOOD, URINE NEGATIVE (NEGATIVE); CLARITY/URINE CLEAR (CLEAR); COLOR,URINE YELLOW (YELLOW); GLUCOSE,URINE NEGATIVE (NEGATIVE); KETONES,URINE NEGATIVE (NEGATIVE); LEUKOCYTE ESTERASE ,URINE NEGATIVE (NEGATIVE); NITRITE, URINE NEGATIVE (NEGATIVE); PROTEIN URINE 2+ (NEGATIVE); UROBILINOGEN,URINE 0.2 (0.2-1.0)
[2019-09-22] MEDS: D5NS 1,000 ML IV SCH ×2 (00:51→09:06)
[2019-09-22 01:03] LABS: BACTERIA,URINE FEW /HPF (None Seen); RBC,URINE 0-3 /HPF (0-3); WBC,URINE 0-3 /HPF (0-3)
--- NOTE | 2019-09-22 01:54 | NUR ---
PAIN Patient complained of 7/10 abdominal pain. PRN medication administered at this time. Call light with patient. Bed alarm on. Will continue to monitor.
--- NOTE | 2019-09-22 04:00 | NUR ---
ROUNDS Patient asleep. No signs of discomfort noted. Chest rise and fall even bilaterally. IVF infusing well. Call light with patient. Bed alarm on. Will continue to monitor.
[2019-09-22] MEDS: PIPERACILLIN/TAZO 3.375 GM in NS 50 ML IV SCH ×3 (05:06→17:22)
[2019-09-22] MEDS: metroNIDAZOLE 250 mg/NS 50 ML IV SCH ×3 (06:11→22:59)
[2019-09-22] MEDS: ACETAMINOPHEN/CODEINE 300 MG-30 MG TABLET PO PRN ×2 (06:13→17:09)
--- NOTE | 2019-09-22 06:34 | NUR ---
CLOSING NOTE Patient in bed sleeping at this time. No s/s of acute distress noted. Breathing is even and unlabored. IVF infusing well, IV site patent, no signs of infiltration or infection noted. Lane attached, secured, and draining by gravity. No active bleeding noted. All needs met throughout shift. Fall and safety precautions maintained throughout shift. Will continue to monitor until patient care is endorsed to oncoming dayshift nurse.
[2019-09-22 07:12] LABS: BASOPHILS % (AUTO) 0.3 % (0.0-2.0); EOSINOPHILS # (AUTO) 0.1 K/uL (0.0-0.4); EOSINOPHILS % (AUTO) 0.8 % (0.0-4.0); HEMATOCRIT 38.3 % (36-54); HEMOGLOBIN 12.5 g/dL (14.0-18.0); LYMPHOCYTES # (AUTO) 1.3 K/uL (1.0-5.5); LYMPHOCYTES % (AUTO) 10.1 % (20.5-51.5); MEAN CORPUSCULAR HEMOGLOBIN 29 pg (27-31); MEAN CORPUSCULAR HGB CONC 33 % (32-36); MEAN CORPUSCULAR VOLUME 88 fL (79.0-98.0); MONOCYTES # (AUTO) 1.3 K/uL (0.0-1.0); MONOCYTES % (AUTO) 10.1 % (1.7-9.3); NEUTROPHILS # (AUTO) 9.9 K/uL (1.8-7.7); NEUTROPHILS % (AUTO) 78.7 % (40.0-70.0); PLATELET COUNT (AUTO) 264 K/uL (130-430); RED BLOOD CELL COUNT(AUTO) 4.37 MIL/uL (4.2-6.2); RED CELL DISTRIBUTION WIDTH 13.8 % (9.0-15.0); WHITE BLOOD COUNT (AUTO) 12.5 K/uL (4.8-10.8)
[2019-09-22 07:17] LABS: ALBUMIN 2.2 g/dL (3.4-4.8); CALCIUM 8.4 mg/dL (8.4-11.0); CREATININE 0.89 mg/dL (0.55-1.30); POTASSIUM 3.6 mmol/L (3.5-5.1); TOTAL BILIRUBIN 0.4 mg/dL (0.0-1.0)
[2019-09-22 07:33] VITALS: BP_SYST 132
[2019-09-22] MEDS: IPRATROPIUM/ALBUTEROL SULFATE 3 ML AMPUL.NEB (DUONEB) INH SCH ×3 (07:33→23:40)
--- NOTE | 2019-09-22 08:00 | NUR ---
INITIAL ROUNDS Awake, lying in bed. Alert. Patient is on clear liquids, refused to eat breakfast at this time. Denies any nausea. IVF infusing well. Abdominal incision intact and open to air. Pain is controlled. Active bowel sounds. Encouraged to use incentive spirometer and to ambulate. Refused to wear SCD, preferred to walk with PT. Safety precautions in place. Call light within reach. Encouraged to ask for assistance when needed.
[2019-09-22 08:15] VITALS: BP_SYST 132
[2019-09-22] MEDS: OLANZapine 10 MG TABLET PO SCH (09:04)
[2019-09-22] MEDS ORDERED: CITALOPRAM HYDROBROMIDE 20 MG TABLET PO ONE (09:30)
[2019-09-22] MEDS ORDERED: traZODone HCL 50 MG TABLET (DESYREL) PO PRN (09:30)
--- NOTE | 2019-09-22 10:29 | NUR ---
Walked to the restroom with PT. Bowel movement reported.
[2019-09-22 11:16] VITALS: BP_SYST 134
--- NOTE | 2019-09-22 11:38 | NUR ---
Patient resting in bed. Denies any pain. Cooperative. Encouraged to call anytime for assistance. Safety precautions in place.
--- NOTE | 2019-09-22 12:49 | NUR ---
P.T. NOTES D/C FROM P.T. AFTER TX, ENDORSED TO NURSING. Addendum: 09/22/19 at 1249 by Alexandria Sunshine PT Amended: Links added.
--- NOTE | 2019-09-22 13:45 | NUR ---
Patient sleeping. Refused to eat at this time. Safety precautions placed. Call light within reach. Will continue to monitor.
[2019-09-22] MEDS: MORPHINE 2 MG/ML INJ. SYRINGE IVP PRN ×3 (14:42→23:01)
--- NOTE | 2019-09-22 15:16 | NUR ---
MD ROUNDS Dr. Lopez made rounds. Made aware of patient's request to advance feeding. Recommended to stay on clear liquids until Dr. Plummer assess patient.
[2019-09-22 15:24] VITALS: BP_SYST 126
--- NOTE | 2019-09-22 16:30 | NUR ---
Awake and calm in bed. Pain is controlled at this time. Safety precautions in place. Call light within reach.
--- NOTE | 2019-09-22 18:50 | NUR ---
Patient is awake. Pain is controlled. IVF infusing well. All needs met throughout the shift. Will endorse.
--- NOTE | 2019-09-22 19:10 | NUR ---
OPENING NOTE/ENCOURAGE IS Bedside report received from dayshift nurse. Patient received lying in bed, no s/s of acute distress noted. Breathing even and unlabored. IVF infusing well. Lane attached, secured, and draining by gravity. No bleeding noted on abdomen, [employer], 11 linus noted. Call light with patient. Patient encouraged to use IS while awake and watching television. Pt demonstrated back proper use. Bed alarm on. Will continue to monitor.
[2019-09-22 20:00] VITALS: BP_SYST 134
--- NOTE | 2019-09-22 20:10 | NUR ---
SPOKE WITH DR TIMMY Plummer made aware of patient's abdominal distention. MD asked if patient has had a bowel movement, RN made him aware that he had a bowel movement today. MD ordered to advance diet to full liquid and have 2 view abdominal xray done tomorrow morning. Also MD made aware of Lane reinsertion due to patient's retention last night. Will carry out orders.
--- NOTE | 2019-09-22 21:00 | NUR ---
ROUNDS Patient asleep. No signs of discomfort noted. Chest rise and fall even bilaterally. IVF infusing well. Lane attached, secure, and draining by gravity. Call light with patient. Bed alarm on. Will continue to monitor.
--- NOTE | 2019-09-22 23:00 | NUR ---
PAIN: Patient c/o 7/10 abdominal pain. PRN medication administered. Will continue to monitor and reassess.
[2019-09-23] VITALS: BP_SYST 128
[2019-09-23] MEDS: PIPERACILLIN/TAZO 3.375 GM in NS 50 ML IV SCH ×5 (00:25→21:55)
--- NOTE | 2019-09-23 01:58 | NUR ---
ROUNDS Patient asleep. No signs of discomfort noted. Chest rise and fall even bilaterally. IVF infusing well. Lane attached, secure, and draining by gravity. Call light with patient. Bed alarm on. Bed locked and in lowest position. Will continue to monitor.
[2019-09-23] MEDS: metroNIDAZOLE 250 mg/NS 50 ML IV SCH ×3 (05:18→21:55)
[2019-09-23] MEDS: MORPHINE 2 MG/ML INJ. SYRINGE IVP PRN ×6 (05:27→22:05)
--- NOTE | 2019-09-23 05:27 | NUR ---
PAIN: Patient c/o of 7/10 abdominal pain. PRN medication administered. Will continue to monitor and reassess. All needs met at this time. Bed is locked and in lowest position. Bed alarm is on and call light is in reach.
--- NOTE | 2019-09-23 06:33 | NUR ---
CLOSING NOTE: Patient is asleep. Breathing is regular and unlabored. No s/s of acute distress. IVF infusing well. IV site(s) patent without signs of infiltration and infection. Lane is attached, secure, and draining by gravity. No active bleeding noted at this time. Fall and safety precautions maintained throughout the shift. All needs met throughout the shift. Will continue to monitor until endorsed to dayshift nurse.
[2019-09-23 07:07] LABS: BASOPHILS % (AUTO) 0.2 % (0.0-2.0); EOSINOPHILS # (AUTO) 0.1 K/uL (0.0-0.4); EOSINOPHILS % (AUTO) 1.2 % (0.0-4.0); HEMATOCRIT 34.7 % (36-54); HEMOGLOBIN 11.5 g/dL (14.0-18.0); LYMPHOCYTES % (AUTO) 10.5 % (20.5-51.5); MEAN CORPUSCULAR HEMOGLOBIN 29 pg (27-31); MEAN CORPUSCULAR HGB CONC 33 % (32-36); MEAN CORPUSCULAR VOLUME 88 fL (79.0-98.0); MONOCYTES # (AUTO) 1.1 K/uL (0.0-1.0); NEUTROPHILS # (AUTO) 7.6 K/uL (1.8-7.7); NEUTROPHILS % (AUTO) 77.1 % (40.0-70.0); PLATELET COUNT (AUTO) 269 K/uL (130-430); RED BLOOD CELL COUNT(AUTO) 3.96 MIL/uL (4.2-6.2); RED CELL DISTRIBUTION WIDTH 13.9 % (9.0-15.0); WHITE BLOOD COUNT (AUTO) 9.8 K/uL (4.8-10.8)
[2019-09-23 07:23] LABS: ALBUMIN 2.2 g/dL (3.4-4.8); CALCIUM 8.3 mg/dL (8.4-11.0); CREATININE 0.79 mg/dL (0.55-1.30); POTASSIUM 3.3 mmol/L (3.5-5.1); TOTAL BILIRUBIN 0.3 mg/dL (0.0-1.0)
--- NOTE | 2019-09-23 07:40 | NUR ---
PATIENT IS RESTING, SR ON MONITOR. A/OX4. HAS F/C, DRAINING YELLOW URINE. IV ON LEFT AC, #20, AND LEFT WRIST, #22, INFUSING D5 NS AT THIS TIME, INTACT AND PATENT. POC IS EXPLAINED, CALL LIGHT IN PLACE, BED LOCKED AT THE LOWEST POSITION, WILL CONTINUE TO MONITOR.
[2019-09-23] MEDS: IPRATROPIUM/ALBUTEROL SULFATE 3 ML AMPUL.NEB (DUONEB) INH SCH ×3 (07:44→23:30)
[2019-09-23] MEDS: CITALOPRAM HYDROBROMIDE 20 MG TABLET PO SCH (08:33)
[2019-09-23] MEDS: OLANZapine 10 MG TABLET PO SCH (08:33)
--- NOTE | 2019-09-23 09:00 | NUR ---
PATIENT HAD BREAKFAST, TOLERATING WITHOUT DISTRESS.
[2019-09-23] MEDS: D5NS 1,000 ML IV SCH ×2 (09:10→22:07)
[2019-09-23] MEDS ORDERED: POTASSIUM CHLORIDE 20 MEQ TAB.PRT.SR PO ONE (10:45)
--- NOTE | 2019-09-23 11:28 | NUR ---
PATIENT IS C/O MID ABDOMINAL PAIN. MORPHINE 2MG IS GIVEN IVP. WILL REASSESS.
[2019-09-23] MEDS ORDERED: SODIUM CHLORIDE 3% *HI-ALERT* 300 ML IV PRN (12:00)
[2019-09-23 12:29] VITALS: BP_SYST 130
[2019-09-23] MEDS ORDERED: traZODone HCL 50 MG TABLET (DESYREL) PO PRN (13:30)
--- NOTE | 2019-09-23 13:48 | NUR ---
DR. WARNER IS AT BEDSIDE ROUNDING WITH PATIENT. ORDERS ARE GIVEN.
--- NOTE | 2019-09-23 13:59 | NUR ---
Nutrition F/U RD reviewed pt's current EMR including diet hx, physician notes, nursing notes, pertinent labs/meds/procedures, care trends and care activity. Admitting Diagnosis: Acute abd ischemic bowel Medical History Comment: POD 4 s/p exploratory laparotomy, small bowel resection, and lysis of adhesions 09/18/19 per EMR Physician further notes sepsis, abd distention, severe malnutrition, and possible ileus. Pt able to pass small liquid BM on per physician note. Subjective Information Pt seen resting in bed, lunch tray at bedside. Pt reports tolerating full liquid diet and ate 100% of lunch; however Ensure Enlive supplement was untouched. Pt states he likes the Ensures. Pt denies any abd pain, nausea or vomiting at present. RD encouraged PO intake, explained benefits of ONS consumption in healing post surgery -- pt acknowledged and verbalized understanding. Current Diet Order/Nutrition Support: Full Liquid x 1 day Current % PO: 25-50% x 3 meals Estimated Energy Expenditure (kcals/day) 1910-3444 kcal/day (30-35 kcal/kg CBW for sepsis, surgical healing) Estimated Protein Required (g/day) 117-156 gm/day (1.5-2 gm/kg CBW for sepsis, surgical healing) Estimated Fluid Required (l/day) 2.3-2.7 L/day (1 ml/kcal/day for maintenance) Problem/Etiology/Signs/Symptoms Inadequate nutritional intakes related to possible lack of appetite as evidenced by negligible PO intakes and restrictive clear liquid diet. *now advanced to full liquid* Expected Outcomes/Goals - Monitor advancement of diet, appetite, and PO intakes w/ goal of pt meeting at least 75% of estimated nutritional needs, labs trending WNL, normal GI function, and skin integrity/wt maintenance Dietitian Recommendations * Recommend continuing full liquid diet * Full liquid diet comes standard w/ Ensure Enlive on each tray, which provides 325kcal and 20gPro per serving. * Encourage increase PO intakes * When/if medically feasible to advance, consider Soft (Low fiber/bland) diet w/ Ensure Enlive BID Follow Up High Risk: F/U in 2-3days Addendum: 09/23/19 at [address] Ensure Enlive provides 350kcal and 20gProtein per serving.
--- NOTE | 2019-09-23 14:07 | NUR ---
Dietitian Recommendations * Recommend continuing full liquid diet * Full liquid diet comes standard w/ Ensure Enlive on each tray, which provides 350kcal and 20gPro per serving. * Encourage increase PO intakes * When/if medically feasible to advance, consider Soft (Low fiber/bland) diet w/ Ensure Enlive BID Please see Nutrition F/U for further details. LT, RD
--- NOTE | 2019-09-23 15:10 | NUR ---
F/C catheter removed. Patient denies distress during the procedure.
--- NOTE | 2019-09-23 15:40 | NUR ---
Patient ambulates to bathroom; he had a moderate dark brown liquid stool.
--- NOTE | 2019-09-23 16:25 | NUR ---
PATIENT IS AT REST, STILL C/O PAIN AT THE SURGICAL SITE.
[2019-09-23 16:45] VITALS: BP_SYST 126
[2019-09-23] MEDS: ACETAMINOPHEN/CODEINE 300 MG-30 MG TABLET PO PRN (17:44)
--- NOTE | 2019-09-23 18:40 | NUR ---
patient is taken to the bathroom, but he states he has no urge to urinate.
[2019-09-23 20:00] VITALS: BP_SYST 128
--- NOTE | 2019-09-23 20:00 | NUR ---
received pt in bed v/s and assessment done ,iv fluids infusing well ,jeronimo d/c pt has not voided will inform md ,pt states he has no urge to void.
[2019-09-23 21:07] LABS: CALCIUM 8.7 mg/dL (8.4-11.0); CREATININE 0.78 mg/dL (0.55-1.30); POTASSIUM 3.6 mmol/L (3.5-5.1)
--- NOTE | 2019-09-23 23:00 | NUR ---
notified of pt not voided as yet,orders to insert jeronimo .jeronimo inserted 0btained 600 cc,medicated for pain ,
[2019-09-24] VITALS: BP_SYST 130
--- NOTE | 2019-09-24 03:00 | NUR ---
pt assisted to bathroom ,vomited 200 cc of bile fluid ,cleaned made comfortable.
[2019-09-24] MEDS: PIPERACILLIN/TAZO 3.375 GM in NS 50 ML IV SCH ×2 (05:22→11:49)
[2019-09-24] MEDS: metroNIDAZOLE 250 mg/NS 50 ML IV SCH ×2 (05:23→13:41)
[2019-09-24 06:46] LABS: BASOPHILS % (AUTO) 0.3 % (0.0-2.0); EOSINOPHILS # (AUTO) 0.1 K/uL (0.0-0.4); EOSINOPHILS % (AUTO) 1.1 % (0.0-4.0); HEMATOCRIT 33.7 % (36-54); HEMOGLOBIN 11.1 g/dL (14.0-18.0); LYMPHOCYTES # (AUTO) 1.2 K/uL (1.0-5.5); LYMPHOCYTES % (AUTO) 12.7 % (20.5-51.5); MEAN CORPUSCULAR HEMOGLOBIN 29 pg (27-31); MEAN CORPUSCULAR HGB CONC 33 % (32-36); MEAN CORPUSCULAR VOLUME 88 fL (79.0-98.0); MONOCYTES # (AUTO) 1.3 K/uL (0.0-1.0); MONOCYTES % (AUTO) 13.9 % (1.7-9.3); NEUTROPHILS # (AUTO) 6.7 K/uL (1.8-7.7); PLATELET COUNT (AUTO) 279 K/uL (130-430); RED BLOOD CELL COUNT(AUTO) 3.85 MIL/uL (4.2-6.2); RED CELL DISTRIBUTION WIDTH 14.1 % (9.0-15.0); WHITE BLOOD COUNT (AUTO) 9.3 K/uL (4.8-10.8)
[2019-09-24 06:51] LABS: CALCIUM 8.3 mg/dL (8.4-11.0); CREATININE 0.69 mg/dL (0.55-1.30); POTASSIUM 3.4 mmol/L (3.5-5.1)
--- NOTE | 2019-09-24 07:18 | NUR ---
OPENING NOTE RECEIVED BEDSIDE SBAR FROM NIGHT NURSE, CLIENT SLEEPING, RESPIRATIONS EVEN, NON LABORED,ESPINO CATHETER DRAINING TO GRAVITY, BED IN LOW AND LOCKED POSITION, CALL LIGHT WITHIN REACH
[2019-09-24] MEDS: IPRATROPIUM/ALBUTEROL SULFATE 3 ML AMPUL.NEB (DUONEB) INH SCH ×2 (07:40→15:01)
[2019-09-24 08:00] VITALS: BP_SYST 131
[2019-09-24] MEDS: OLANZapine 10 MG TABLET PO SCH (08:20)
[2019-09-24] MEDS: CITALOPRAM HYDROBROMIDE 20 MG TABLET PO SCH (08:21)
[2019-09-24] MEDS: MORPHINE 2 MG/ML INJ. SYRINGE IVP PRN (08:30)
[2019-09-24] MEDS ORDERED: POTASSIUM CHLORIDE 20 MEQ TAB.PRT.SR PO ONE (09:00)
--- NOTE | 2019-09-24 09:50 | NUR ---
catheter removed educated patient on procedure, removed patients jeronimo catheter, patient tolerated well, advised patient that he should call nurse when he needs to ambulate to bathroom or he can use his urinal.
--- NOTE | 2019-09-24 11:15 | NUR ---
Incontinent patient incontinent of bowel, patient cleaned and linen changed, patient tolerated well, patient voided in urinal first void after jeronimo catheter removal, 400ml, patient resting in bed.
[2019-09-24] MEDS: ACETAMINOPHEN/CODEINE 300 MG-30 MG TABLET PO PRN (11:49)
[2019-09-24 12:15] VITALS: BP_SYST 132
--- NOTE | 2019-09-24 12:28 | NUR ---
Spoke with Surgeon spoke with Dr. Plummer, per Dr. Plummer patient is cleared for discharge and should follow up with Dr. Plummer within one week, informed CM Alma and director of social media marketing Melissa.
--- NOTE | 2019-09-24 14:10 | NUR ---
CM Note: The pt was cleared by surgery per BENJAMIN Mccurdy, dr Lopez, ordered pt dc to [facility] today. DALLIN Haley made aware she will get pt ready for family to last picker at 1530. Melissa JJ made aware.
[2019-09-24] MEDS: D5NS 1,000 ML IV SCH (14:27)
[2019-09-24 14:49] VITALS: BP_SYST 134
--- NOTE | 2019-09-24 15:01 | NUR ---
Perinatal Director: Met with pt. re. discharge. Will he be going back to [facility] (Voluntary) or back home to recover ANNUAL GIVING MANAGER met with pt. , introduced self. PT. stated he is going back to [facility]. He stated all of his belongings are there. He also said he is going to be re-admitted there. ANNUAL GIVING MANAGER shared this info with Rn. Mccurdy. ANNUAL GIVING MANAGER called pts. father James Cancino, who stated he can send his daughter, pts' sister to pick pt. up upon D/C. CAMILO Borjavincenzo stated pt. will be discharged at 3:30. PTs. father will make sure pts. ride is at [facility] for pickup. Pt. had requested a letter for his employer. Also he signed a disclosure. ANNUAL GIVING MANAGER will now file paper and send over a packet to [facility]. ANNUAL GIVING MANAGER spoke to Brandie Bhatt at [facility]. ANNUAL GIVING MANAGER will fax packet to [phone]. Lucia stated pt. is not re-admitted, he will be assessed. Pt. is leaving [facility] and his is not on a 5150. ANNUAL GIVING MANAGER spoke to pt. gave him a letter stating his admission and discharge date. ANNUAL GIVING MANAGER also informed him of his ride at 3:30. Pt. stated he did not have any clothing. ANNUAL GIVING MANAGER called Security and spoke to James. He will bring Pt. some clothing to his room. ANNUAL GIVING MANAGER communicated all of this to Rn. Mccurdy. Calli stataed she will have to get new orders from Dr. Lopez D/C home because pt. is not going to be directly re-admitted to [facility]. ANNUAL GIVING MANAGER will remain available as needed.
[2019-09-24 15:03] VITALS: BP_SYST 134
--- NOTE | 2019-09-24 15:15 | NUR ---
Spoke with Physician spoke with Dr. Lopez, informed her that per АННА Torres, [facility] is not admitting the patient but states that the patient may go there to be evaluated for admission, orders received to discharge patient home and recommend that patient go to [facility] to be evaluated before going home, verified with read back. Addendum: 09/24/19 at 1519 by Calli Miller RN informed Dr. Lopez that patient is being picked up by family via private auto, okay per Dr. Lopez.
--- NOTE | 2019-09-24 15:35 | NUR ---
Spoke with Patients Father spoke with patients father James, informed him that patient is not sure of which pharmacy he uses, per patients father James, patients preferred pharmacy is [facility], [address], [place] [address], , informed Dr. Lopez of patients preferred pharmacy.
--- NOTE | 2019-09-24 15:36 | NUR ---
Real Estate Accountant : resources When SENIOR MARKETING ENGINEER gave pt. the requested letter, she also included a medical clinic resource. PT. was ok with this resource and thanked SENIOR MARKETING ENGINEER.
--- NOTE | 2019-09-24 15:59 | NUR ---
Spoke with Physician spoke with Dr. Crouch, informed him that patient is being discharge today, orders to cancel the lab orders that he just entered, verified with read back.
[2019-09-24 16:00] VITALS: BP_SYST 134
--- NOTE | 2019-09-24 16:40 | NUR ---
DISCHARGE POVIDED PATIENT WITH DISCHARGE PACKET AND INSTRUCTIONS, INSTRUCTED PATIENT AND SISTER, URSULA TO GO TO [facility] FOR EVALUATION BEFORE GOING HOME, INFORMED PATIENT AND PATIENTS SISTER THAT [facility] IS TO BE DRAWN TOMORROW, PATIENT AND PATIENTS SISTER VERBALIZED UNDERSTANDING, IV CATHETERS REMOVED X2, CATHETER INTACT, NO BLEEDING, ALL BELONGINGS SENT HOME WITH PATIENT, PATIENT TAKEN TO PARKING LOT VIA WHEELCHAIR
== END 2019-09-24 16:40 | disposition home or self-care (01) | DRG 853 ==
LOC: SED 19:24 → SIC 21:37 → SMU 22:41 → SIC 09-19 12:20 → STU 09-20 17:14
PROVIDERS: ADMIT Internal Medicine; ATTEND Internal Medicine
PROC: 0WBF0ZZ Excision of Abdominal Wall, Open Approach (ICD-10-PCS; 2019-09-18)
PROC: 0DN80ZZ Release Small Intestine, Open Approach (ICD-10-PCS; 2019-09-18)
PROC: 0DB80ZZ Excision of Small Intestine, Open Approach (ICD-10-PCS; 2019-09-18)
PROC: 0WQF0ZZ Repair Abdominal Wall, Open Approach (ICD-10-PCS; principal; 2019-09-18 23:35)
DX: A41.9 Sepsis, unspecified organism (principal); K65.9 Peritonitis, unspecified; N17.0 Acute kidney failure with tubular necrosis; E43 Unspecified severe protein-calorie malnutrition; K55.9 Vascular disorder of intestine, unspecified; E87.1 Hypo-osmolality and hyponatremia; K42.0 Umbilical hernia with obstruction, without gangrene; K66.0 Peritoneal adhesions (postprocedural) (postinfection); F31.9 Bipolar disorder, unspecified; R33.9 Retention of urine, unspecified; F41.9 Anxiety disorder, unspecified; Z93.3 Colostomy status; Z79.899 Other long term (current) drug therapy; Z68.25 Body mass index [BMI] 25.0-25.9, adult
CPT/HCPCS: 36415; 36600; 71045; 74018; 74021; 80048; 80053; 80307; 81000-TC; 82150-TC; 82550-TC; 82553-TC; 82803-TC; 83605; 83690-TC; 83735-TC; 83935-TC; 84100-TC; 84300-TC; 84302-TC; 84443-TC; 84484; 85007; 85025; 85027; 85610-TC; 85730-TC; 86886; 86900; 86901; 87040-TC; 87081; 88305; 93005; 94640; 94760; 96365; 96368; 96375; 97112-GP; 97116-GP; 99285; C9113; G0378; J1580; J2060; J2175; J2250; J2270; J2405; J2543; J2704; J2710; J3010; J3480; J3490; J7030; J7042; J7050; J7060; J7120

== ENCOUNTER 2019-09-27 15:40 | Inpatient (IN) | payer OTHER, MEDICAID ==
[~2019-09-27] VITALS: Ht 175.3 cm; Wt 75.7 kg
[~2019-09-27 15:40] MED LIST changes: +ACET-2165 PO; +ACET325T53 PO; +BEN50 PO; +ESCI10TA PO; -GLYCOPYRROLATE 0.2 MG/ML VIAL ONE; +LORA1TAB PO; -LR 1,000 ML IV.SOLN IV ONE; +MAG-151 PO; -MEPERIDINE HCL/PF 25 MG/ML DISP.SYRIN ONE; -MIDAZOLAM HCL 5 MG/ML VIAL (VERSED) IV ONE; +MOM PO; -NEOSTIGMINE METHYLSULFATE 1 MG/ML, 10 ML VIAL ONE; -NS IRRIG SOLN 1000 ML IR ONE; +OLAN20TA35 PO; +PANT40TA4 PO; -PROPOFOL 200MG/ 20ML VIAL (DIPRIVAN) IV ONE; -ROCURONIUM BROMIDE 10 MG/ML (ZEMURON) ONE; -SEVOFLURANE 15 MIN GAS INH ONE; +THOR25 PO; +TRAZ-250 PO; +VIS50 PO; -fentaNYL CITRATE/PF 100 MCG/2 ML AMP ONE
[2019-09-27 16:05] VITALS: BP_SYST 124
--- NOTE | 2019-09-27 16:05 | NUR ---
Patient to ER bed hallway for evaluation. Side rails up. Report given to BENJAMIN Mcintyre.
--- NOTE | 2019-09-27 16:10 | NUR ---
JUAN Martinez at bedside examining patient.
--- NOTE | 2019-09-27 16:20 | NUR ---
ua collected and sent to the lab
--- NOTE | 2019-09-27 16:30 | NUR ---
PT ARRIVES FROM [place] FOR C/O INCREASING ABD PAIN. PT HAD ABD SX ONE WEEK. WILL CONTINUE TO MONITOR
--- NOTE | 2019-09-27 16:45 | NUR ---
# 20 gauge angiocath placed to LFA. Use of asceptic technique. Opsite placed over site. Blood return noted. Blood for lab drawn from site. Flushed with 10 cc of normal saline. No evidence of infiltration noted. Patient tolerated well.
[2019-09-27] MEDS ORDERED: MORPHINE 4 MG/ML INJ. SYRINGE IVP ONE ×2 (17:00→18:00)
[2019-09-27] MEDS ORDERED: NACL 0.9% 1,000 ML IV ONE ×2 (17:00→17:45)
[2019-09-27] MEDS ORDERED: ONDANSETRON HCL 4 MG/2 ML VIAL IVP ONE (17:00)
--- NOTE | 2019-09-27 17:00 | NUR ---
NS CURRENTLY INFUSING PER MD ORDER.
[2019-09-27 17:21] LABS: BASOPHILS % (AUTO) 0.2 % (0.0-2.0); EOSINOPHILS % (AUTO) 0.4 % (0.0-4.0); HEMATOCRIT 34.6 % (36-54); HEMOGLOBIN 11.5 g/dL (14.0-18.0); LYMPHOCYTES # (AUTO) 1.1 K/uL (1.0-5.5); LYMPHOCYTES % (AUTO) 10.9 % (20.5-51.5); MEAN CORPUSCULAR HEMOGLOBIN 29 pg (27-31); MEAN CORPUSCULAR HGB CONC 33 % (32-36); MEAN CORPUSCULAR VOLUME 87 fL (79.0-98.0); MONOCYTES # (AUTO) 0.6 K/uL (0.0-1.0); MONOCYTES % (AUTO) 6.3 % (1.7-9.3); NEUTROPHILS # (AUTO) 8.3 K/uL (1.8-7.7); NEUTROPHILS % (AUTO) 82.2 % (40.0-70.0); PLATELET COUNT (AUTO) 345 K/uL (130-430); RED BLOOD CELL COUNT(AUTO) 3.97 MIL/uL (4.2-6.2); RED CELL DISTRIBUTION WIDTH 14.5 % (9.0-15.0); WHITE BLOOD COUNT (AUTO) 10.1 K/uL (4.8-10.8)
[2019-09-27 17:39] LABS: CALCIUM 8.4 mg/dL (8.4-11.0); CREATININE 0.76 mg/dL (0.55-1.30); POTASSIUM 3.8 mmol/L (3.5-5.1)
[2019-09-27 17:45] LABS: ALBUMIN 2.3 g/dL (3.4-4.8); TOTAL BILIRUBIN 0.1 mg/dL (0.0-1.0)
[2019-09-27] MEDS ORDERED: PIPERACILLIN/TAZO 3.375 GM in NS 50 ML IV ONE (17:45)
[2019-09-27 17:46] LABS: BILIRUBIN,URINE NEGATIVE (NEGATIVE); BLOOD, URINE NEGATIVE (NEGATIVE); CLARITY/URINE CLEAR (CLEAR); COLOR,URINE YELLOW (YELLOW); GLUCOSE,URINE NEGATIVE (NEGATIVE); KETONES,URINE NEGATIVE (NEGATIVE); LEUKOCYTE ESTERASE ,URINE NEGATIVE (NEGATIVE); NITRITE, URINE NEGATIVE (NEGATIVE); PROTEIN URINE NEGATIVE (NEGATIVE); UROBILINOGEN,URINE 0.2 (0.2-1.0)
[2019-09-27 18:05] LABS: INR 1.1 (0.80-1.20); PROTHROMBIN TIME 11.5 SECS (9.5-12.5)
[2019-09-27] MEDS ORDERED: ONDANSETRON HCL 4 MG/2 ML VIAL IVP PRN ×2 (18:15→19:30)
[2019-09-27] MEDS ORDERED: MORPHINE 2 MG/ML INJ. SYRINGE IVP PRN ×4 (18:15→21:00)
--- NOTE | 2019-09-27 18:50 | NUR ---
called med surg for report. Spoke w/ Yamil cardiac monitor who stated that the pt has been assigned for the shift production associate and to call back to give report
--- NOTE | 2019-09-27 18:50 | NUR ---
NS 1l and Zosyn IVPB
[2019-09-27] MEDS ORDERED: BEN50 PO (19:01)
--- NOTE | 2019-09-27 19:01 | NUR ---
Medication reconciliation completed with information provided by pt. Any prior medication reconciliation on file was reviewed and corrected.
[2019-09-27] MEDS ORDERED: PIPERACILLIN/TAZOBACTAM 3.375 GM/VIAL (ZOSYN) IV ONE ×2 (19:04→22:46)
--- NOTE | 2019-09-27 19:27 | NUR ---
Patient will be admitted to care of dr russo. Admitted to med surg unit. Will go to room 109-c. Belongings list completed. Complete and up to date summary report printed. SBAR report to be given at bedside with opportunity for questions. report given to Shaka ALEXANDER.
[2019-09-27] MEDS ORDERED: ACETAMINOPHEN 325 MG TABLET PO PRN (19:30)
[2019-09-27] MEDS ORDERED: MAGNESIUM SULFATE 50 ML IV PRN (19:30)
[2019-09-27] MEDS ORDERED: DOCUSATE SODIUM 100 MG CAPSULE PO PRN (19:30)
[2019-09-27] MEDS ORDERED: MUPIROCIN 2% TOPICAL OINTMENT 22 GM NS PRN (19:30)
--- NOTE | 2019-09-27 19:40 | NUR ---
ADMISSION NOTE Received patient from ER via gurney. Patient admitted with diagnosis of SMALL BOWEL OBSTRUCTION. Patient is awake, alert, oriented X 4. Patient oriented to hospital room, call light, toileting, pain management and safety-teach back done. Patient informed that MARY will be HIS nurse and that their room number is 109C. Personal belongings checked and Belongings List documented. Call light within reach.
[2019-09-27 19:49] VITALS: BP_SYST 148
--- NOTE | 2019-09-27 19:55 | NUR ---
DR. BAILEY SPOKE WITH DR. BAILEY OVER THE PHONE REGARDING PATIENT'S STATUS, MD MADE AWARE PATIENT DID NOT RECEIVED NG TUBE PLACEMENT IN ED AND INFORMED THIS RN TO PLACE AN NG-TUBE ON LOW INTERMITTED SUCTION, ALSO MADE AWARE OF PATIENT'S PAIN LEVEL AND GAVE NEW ORDERS TO INCREASE MORPHINE MEDICATION FROM 2MG TO 4MG IVP Q4P FOR SEVERE PAIN, ALL ORDERED CONFIRMED AND VERIFIED BY READ-BACK, RN TO INPUT, WILL GIVE MEDICATION WHEN PHARMACY VERIFIES MEDICATION.
--- NOTE | 2019-09-27 20:13 | NUR ---
paged paged for Dr Garcia, dialed . unable to pick-up call, left voice message.
[2019-09-27] MEDS: D5NS 1,000 ML IV SCH (21:04)
--- NOTE | 2019-09-27 21:16 | NUR ---
PAIN PATIENT COMPLAINS OF 10/10 PAIN TO HIS LOWER ABDOMEN. PRN MORPHINE 4MG INDICATED FOR SEVERE PAIN. EDUCATED PATIENT ON MEDICATION USES AND POTENTIAL SIDE EFFECTS, PATIENT ABLE TO VERBALIZE UNDERSTANDING, ADMINISTERED MEDICATION PER MD ORDER, PATIENT TOLERATED WELL. SAFETY AND FALL PRECAUTIONS IN PLACE, CALL LIGHT WITH PATIENT, WILL CONTINUE TO MONITOR.
[2019-09-27] MEDS: LORazepam 2 MG/ML VIAL IVP PRN (22:40)
--- NOTE | 2019-09-27 22:44 | NUR ---
ANXIETY PATIENT COMPLAINS OF ANXIETY. PRN ATIVAN INDICATED ANXIETY. EDUCATED PATIENT ON MEDICATION USES AND POTENTIAL SIDE EFFECTS, PATIENT ABLE TO VERBALIZE UNDERSTANDING, ADMINISTERED MEDICATION PER MD ORDER, PATIENT TOLERATED WELL. SAFETY AND FALL PRECAUTIONS IN PLACE, CALL LIGHT WITH PATIENT, WILL CONTINUE TO MONITOR.
--- NOTE | 2019-09-27 22:50 | NUR ---
NG TUBE PLACEMENT: # 18 FR NG tube placed to left nare. Placement checked by auscultation of instilled air into stomach and aspiration of gastric contents. Tubing taped in place to prevent dislodging. Patient tolerated well.
[2019-09-27] MEDS: PIPERACILLIN/TAZO 3.375/DEX-IS 50 ML IV SCH (23:34)
[2019-09-27 23:55] LABS: BARBITURATE, URINE NEGATIVE (NEG <=200); OPIATE, URINE POSITIVE (NEG <=100)
[2019-09-27 23:56] LABS: BENZODIAZEPINE, URINE NEGATIVE (NEG <=150); CANNABINOID, URINE NEGATIVE (NEG <=50); COCAINE, URINE NEGATIVE (NEG <=150); METHAMPHETAMINES SCREEN,URINE NEGATIVE (NEG <=500); PHENCYCLIDINE SCREEN,URINE NEGATIVE (NEG <=25); UR TRICYCLIC ANTIDEPRESSANTS NEGATIVE (NEG <=300); URINE AMPHETAMINE NEGATIVE (NEG <=500); URINE METHADONE NEGATIVE (NEG <=200); URINE OXYCODONE SCREEN NEGATIVE (NEG <=100); URINE PROPOXYPHENE SCREEN NEGATIVE (NEG <=300)
--- NOTE | 2019-09-28 00:14 | NUR ---
CONSULTATION PAGED/CALLED Reason for Consultation: SBO Person Who was Notified: SHANNA Consulting Physician: TIMMY Economics Department Chair Specialty: Ordering Physician: LEO
[2019-09-28] MEDS: MORPHINE 4 MG/ML INJ. SYRINGE IVP PRN ×7 (00:33→23:35)
--- NOTE | 2019-09-28 00:33 | NUR ---
PAIN PATIENT COMPLAINS OF 7/10 PAIN TO HIS LOWER ABDOMEN. PRN MORPHINE 4MG INDICATED FOR SEVERE PAIN. EDUCATED PATIENT ON MEDICATION USES AND POTENTIAL SIDE EFFECTS, PATIENT ABLE TO VERBALIZE UNDERSTANDING, ADMINISTERED MEDICATION PER MD ORDER, PATIENT TOLERATED WELL. SAFETY AND FALL PRECAUTIONS IN PLACE, CALL LIGHT WITH PATIENT, WILL CONTINUE TO MONITOR.
[2019-09-28 03:29] VITALS: BP_SYST 146
--- NOTE | 2019-09-28 04:46 | NUR ---
PAIN PATIENT COMPLAINS OF 8/10 PAIN TO HIS LOWER ABDOMEN. PRN MORPHINE 4MG INDICATED FOR SEVERE PAIN. EDUCATED PATIENT ON MEDICATION USES AND POTENTIAL SIDE EFFECTS, PATIENT ABLE TO VERBALIZE UNDERSTANDING, ADMINISTERED MEDICATION PER MD ORDER, PATIENT TOLERATED WELL. SAFETY AND FALL PRECAUTIONS IN PLACE, CALL LIGHT WITH PATIENT, WILL CONTINUE TO MONITOR.
[2019-09-28] MEDS: D5NS 1,000 ML IV SCH ×3 (05:32→22:25)
[2019-09-28] MEDS: PIPERACILLIN/TAZO 3.375/DEX-IS 50 ML IV SCH ×4 (05:32→22:23)
[2019-09-28] MEDS ORDERED: PIPERACILLIN/TAZOBACTAM 3.375 GM/VIAL (ZOSYN) IV ONE (05:37)
--- NOTE | 2019-09-28 06:45 | NUR ---
CLOSING NOTE PATIENT RESTING IN BED, AWAKE, NO SIGN OF ACUTE DISTRESS, EVEN AND UNLABORED BREATHING ON ROOM AIR, IV TO LEFT AC INFUSING D5 NS @80ML/HR, PATENT/BENIGN, NG-TUBE IN PLACE TO LEFT NARE ON LOW INTERMITTED SUCTION. SAFETY AND FALL PRECAUTIONS IN PLACE, BED ALARM ON, BED LOCKED AND IN LOWEST POSITION, TWO SIDE RAILS UP, CALL LIGHT WITH PATIENT, WILL ENDORSE CARE TO DAYSHIFT RN.
[2019-09-28 07:14] LABS: BASOPHILS % (AUTO) 0.6 % (0.0-2.0); EOSINOPHILS # (AUTO) 0.1 K/uL (0.0-0.4); HEMATOCRIT 32.9 % (36-54); HEMOGLOBIN 10.8 g/dL (14.0-18.0); LYMPHOCYTES # (AUTO) 1.4 K/uL (1.0-5.5); LYMPHOCYTES % (AUTO) 18.6 % (20.5-51.5); MEAN CORPUSCULAR HEMOGLOBIN 29 pg (27-31); MEAN CORPUSCULAR HGB CONC 33 % (32-36); MEAN CORPUSCULAR VOLUME 87 fL (79.0-98.0); MONOCYTES # (AUTO) 0.7 K/uL (0.0-1.0); MONOCYTES % (AUTO) 9.6 % (1.7-9.3); NEUTROPHILS # (AUTO) 5.1 K/uL (1.8-7.7); NEUTROPHILS % (AUTO) 70.2 % (40.0-70.0); PLATELET COUNT (AUTO) 339 K/uL (130-430); RED BLOOD CELL COUNT(AUTO) 3.76 MIL/uL (4.2-6.2); RED CELL DISTRIBUTION WIDTH 14.7 % (9.0-15.0); WHITE BLOOD COUNT (AUTO) 7.3 K/uL (4.8-10.8)
[2019-09-28 07:28] LABS: CALCIUM 8.2 mg/dL (8.4-11.0); CREATININE 0.66 mg/dL (0.55-1.30); POTASSIUM 3.4 mmol/L (3.5-5.1)
[2019-09-28] MEDS ORDERED: BISACODYL 10 MG/SUPPOSITORY RC ONE (07:45)
[2019-09-28 08:00] VITALS: BP_SYST 137
--- NOTE | 2019-09-28 08:00 | NUR ---
Note Pt was seen and assessed by Dr Plummer at 0720am. After assessment orders were written and carried out. No SOB/resp distress or severe pain/discomfort noted at this time. Pt has NGT to left nares - LIS. IV in left AC intact and patent infusing IVF's well. Pt is NPO all shift. Call light within reach.
[2019-09-28] MEDS: CITALOPRAM HYDROBROMIDE 20 MG TABLET PO SCH (09:17)
[2019-09-28] MEDS: OLANZapine 5 MG TABLET PO SCH ×2 (09:17→22:23)
[2019-09-28] MEDS: POTASSIUM CHLORIDE 20 MEQ TAB.PRT.SR PO PRN (09:17)
[2019-09-28] MEDS ORDERED: KCL 20 mEq in 100 mL (PREMIX) 100 ML IV ONE (10:00)
--- NOTE | 2019-09-28 12:00 | NUR ---
Note Pt's sheets were cleaned and changed, as sheets had bile drainage. Pt ambulated to restroom taking the NGT canister and IV pole with him to the restroom. Pt uses urinal to void. Call light within reach.
--- NOTE | 2019-09-28 15:26 | NUR ---
Curer Foam Rubber: met with pt. for a dcpa and social work intervention MD SENIOR RESEARCH SCIENTIST introduced self to pt. who was awake and sitting up in her bed. She was open to being interviewed. Pt. was talkative and responded appropriately to MD SENIOR RESEARCH SCIENTIST's questions. Pt. did have slow speech. as she has been detoxing for the past couple of days while here at the hospital. Pt. stated she has been drinking a gallon of vodka daily. MD SENIOR RESEARCH SCIENTIST asked pt. how long she has been drinkng excessively. Pt. stated for the past 6 years. She stated she has a 5 year old daughter with sever autism. She said while she was she stayed sober for the 7 1/2 months she was . Pt. delivered a premature baby. Her daughter now lives with her ex . Pt. will see her daughter on the weekends when she goes to her ex-husbands home and will stay for the weekend to visit with her daughter. MD SENIOR RESEARCH SCIENTIST asked pt. if she has ever been to a detox program. Pt. stated she had been to [facility] in August, but left after 10 days. She said her anxiety became really "Bad" and she could not stand it any longer. Pt. stated she has been Dx. with anxiety and takes anti-anxiety medication. Pt. added in 2018, she enrolled in [facility] in Jun. She stayed for the 90 day program and then went to a sober living. She stayed there for another couple of months, but she began drinking again. Pt. stated she has family as a support system, but they are at their wits end with her. Pt.added her roommate asked her to gather up her belonging and leave, she is no longer going to be able to stay there. Pt. plans to go and pack up and stay with a friend in [place] MD SENIOR RESEARCH SCIENTIST asked pt. if she considers herself homeless. Pt. was not sure how to respond. MD SENIOR RESEARCH SCIENTIST asked pt. if it was ok if she goes to gather up some homeless resources. Pt was in agreement. MD SENIOR RESEARCH SCIENTIST also gave pt. some substance abuse resources and Mental Health Clinics. Pt thought it was a good idea to participate in therapy. MD SENIOR RESEARCH SCIENTIST gave pt. all these listed resources and aske if pt. had any questions, she can have her Rn. call MD SENIOR RESEARCH SCIENTIST. MD SENIOR RESEARCH SCIENTIST will remain available as needed. Addendum: 09/28/19 at 1556 by Keesha Ramirez MD SENIOR RESEARCH SCIENTIST ATTENTIONwrong entry. Please be aware this entry is for another pt. that was seen on this same day. Melissa Ramirez
[2019-09-28 16:00] VITALS: BP_SYST 132
--- NOTE | 2019-09-28 16:09 | NUR ---
Tower Equipment Repairer: Conduct a Social Work Interview. PATIENT FINANCIAL REP greeted pt. who was asleep when PATIENT FINANCIAL REP arrived. Pt. was kind and stated he remembered PATIENT FINANCIAL REP from his last hospital admission (PATIENT FINANCIAL REP had met with pt. on Tuesday September 24, 2019). Pt stated he was ok with PATIENT FINANCIAL REP leaving him some resources. He stated when he is cleared and D/Cs', he will return to his sober living home. Pt. stated he did not need anything. He thanked PATIENT FINANCIAL REP who will remain available as needed.
--- NOTE | 2019-09-28 19:00 | NUR ---
Note Pt was checked on q1' and PRN all shift for needs and care. IV in left AC intact and patent infusing IVF's well. No SOB/resp distress or severe abdominal pain/discomfort noted at this time. NGT to left nares intact and draining to wall suction - intermittently. No needs noted at this time. Call light within reach. Pt has been NPO all shift.
--- NOTE | 2019-09-28 19:55 | NUR ---
REPORT FROM SHOBHA ALEXANDER. PT IN BED AAOX4, CALM AND QUIET, IVF INFUSING, NAD NOTED.
[2019-09-28 20:00] VITALS: BP_SYST 139
--- NOTE | 2019-09-28 22:15 | NUR ---
MED PASS COMPLETED, PT TOLERATED WELL, PAIN MED EFFECTIVE, PT ASLEEP S/P PAIN PROTECTIVE OFFICER. NAD NOTED
[2019-09-29 00:32] VITALS: BP_SYST 136
[2019-09-29] MEDS: MORPHINE 4 MG/ML INJ. SYRINGE IVP PRN ×8 (02:19→23:38)
--- NOTE | 2019-09-29 02:30 | NUR ---
PT AAOX4 W/ C/O PAIN 11/24, REQUESTING MORPHINE SULFATE 3 MG IVP Q 3 HRS SHARP. NAD OR SOB NOTED. WILL CONT TO MONITOR FOR SAFETY.
[2019-09-29] MEDS: PIPERACILLIN/TAZO 3.375/DEX-IS 50 ML IV SCH ×4 (05:07→23:36)
--- NOTE | 2019-09-29 05:30 | NUR ---
PT AAOX4 W/ C/O PAIN 11/24, REQUESTING MORPHINE SULFATE 3 MG IVP Q 3 HRS SHARP. DSG CHANGE TO MID ABD, SARAHY , SEROUS SANG DRAINAGE, MOD AMT NOTED. PT REQUESTING TO EAT FOOD TODAY. EXPLAINED REASON FOR NGT AND NPO STATUS FOR HIS SAFETY, NOT CLEAR TO PATIENT, RE-ENFORCEMENT NEEDED. WILL PASS ON IN AM REPORT. NAD OR SOB NOTED.WILL CONT TO MONITOR RESP STATUS AND ALERTNESS FOR PT SAFETY.
--- NOTE | 2019-09-29 06:54 | NUR ---
OPENING NOTES Received report from isaak ALEXANDER. Patient is awake, alert, oriented x 4, breathing evenly and nonlabored on room air. Patient has an IV on the left AC arm 18g, patent and benign at this time, IVF running, patient is tolerating it well. Educated patient on plan of care, fall/safety precautions, call light system, patient able to state understanding with return demonstration. Bed is locked, armed, and at lowest position, will continue to monitor. Addendum: 09/30/19 at 0656 by Lui Dailey RN ERROR, DISREGARD
[2019-09-29 07:11] LABS: BASOPHILS % (AUTO) 0.5 % (0.0-2.0); EOSINOPHILS # (AUTO) 0.1 K/uL (0.0-0.4); EOSINOPHILS % (AUTO) 1.1 % (0.0-4.0); HEMATOCRIT 35.3 % (36-54); HEMOGLOBIN 11.5 g/dL (14.0-18.0); LYMPHOCYTES # (AUTO) 1.6 K/uL (1.0-5.5); LYMPHOCYTES % (AUTO) 22.5 % (20.5-51.5); MEAN CORPUSCULAR HEMOGLOBIN 29 pg (27-31); MEAN CORPUSCULAR HGB CONC 33 % (32-36); MEAN CORPUSCULAR VOLUME 88 fL (79.0-98.0); MONOCYTES # (AUTO) 0.8 K/uL (0.0-1.0); NEUTROPHILS # (AUTO) 4.7 K/uL (1.8-7.7); NEUTROPHILS % (AUTO) 64.9 % (40.0-70.0); PLATELET COUNT (AUTO) 376 K/uL (130-430); RED BLOOD CELL COUNT(AUTO) 4.02 MIL/uL (4.2-6.2); RED CELL DISTRIBUTION WIDTH 14.6 % (9.0-15.0); WHITE BLOOD COUNT (AUTO) 7.3 K/uL (4.8-10.8)
[2019-09-29 07:17] LABS: CALCIUM 8.2 mg/dL (8.4-11.0); CREATININE 0.67 mg/dL (0.55-1.30); POTASSIUM 3.5 mmol/L (3.5-5.1)
--- NOTE | 2019-09-29 07:55 | NUR ---
REPORT TO 7 AM PT AAAOX3 NAD NOTED. Addendum: 09/29/19 at 0903 by Robert piledriver carpenter [id number], JEROME NOTED
[2019-09-29 08:00] VITALS: BP_SYST 139
--- NOTE | 2019-09-29 08:00 | NUR ---
initial notes rec patient awake alert with hob elevated. ivf infusing well on the l ac. no infiltration noted. resp easy and unlabored. bed to the lowest position and side rails up and locked. ngt in place to low continous suction. no drainage at this time. will continue to monitor patient.
[2019-09-29 08:22] VITALS: BP_SYST 136
[2019-09-29] MEDS: OLANZapine 5 MG TABLET PO SCH ×2 (09:00→20:51)
[2019-09-29] MEDS: CITALOPRAM HYDROBROMIDE 20 MG TABLET PO SCH (09:00)
--- NOTE | 2019-09-29 10:00 | NUR ---
rounds seen by dr davila and dr hoff was called since patient wants to eat. read the resul and ordered small bowel follow though.
[2019-09-29] MEDS ORDERED: DIATR MEGLU/DIATRIZ SOD 30 ML SOLUTION PO ONE (10:10)
[2019-09-29] MEDS ORDERED: GASTROGRAFIN 120 ML ONE (10:19)
[2019-09-29] MEDS: D5NS 1,000 ML IV SCH ×2 (11:21→23:59)
--- NOTE | 2019-09-29 12:02 | NUR ---
rounds pain medication was given as ordered. small bowel follow through test in progress. dressing on the abdomen.
--- NOTE | 2019-09-29 15:23 | NUR ---
Dietitian Recommendations * Consider advance diet if/when medically appropriate LP, RD Please refer to Nutrition Assessment for details. Addendum: 09/29/19 at [address] Amended: Links added.
--- NOTE | 2019-09-29 18:54 | NUR ---
closing notes got a call form [facility] and small bowel follow through test still in progress. will be over at 21 30 as per travist the tech form radiology. no c/o pain. no sob noted. bed to the lowest position.
--- NOTE | 2019-09-29 19:58 | NUR ---
OPENING NOTES Received report from isaak RN. Patient is awake, alert, oriented x 4, breathing evenly and nonlabored on room air. Patient has an IV on the left AC arm 18g, patent and benign at this time, IVF running, patient is tolerating it well. Educated patient on plan of care, fall/safety precautions, call light system, patient able to state understanding with return demonstration. Bed is locked, armed, and at lowest position, will continue to monitor.
[2019-09-29 20:35] VITALS: BP_SYST 133
[2019-09-30 00:36] VITALS: BP_SYST 137
[2019-09-30] MEDS: PIPERACILLIN/TAZO 3.375/DEX-IS 50 ML IV SCH ×4 (05:41→23:40)
[2019-09-30] MEDS: MORPHINE 4 MG/ML INJ. SYRINGE IVP PRN ×7 (05:42→23:43)
--- NOTE | 2019-09-30 06:57 | NUR ---
CLOSING NOTES Patient is awake, breathing evenly and nonlabored on room air. Patient has an IVF running, patient is tolerating it well. Patient consistently asked and received pain medication every 3 hours since 2044 yesterday. Patient vomited multiple times. Assisted patient to and from the bathroom. Needs met throughout the shift, will endorse care to morning shift RN.
[2019-09-30 07:07] LABS: BASOPHILS % (AUTO) 0.5 % (0.0-2.0); EOSINOPHILS % (AUTO) 0.5 % (0.0-4.0); HEMATOCRIT 40.7 % (36-54); HEMOGLOBIN 13.5 g/dL (14.0-18.0); LYMPHOCYTES # (AUTO) 1.3 K/uL (1.0-5.5); LYMPHOCYTES % (AUTO) 14.3 % (20.5-51.5); MEAN CORPUSCULAR HEMOGLOBIN 29 pg (27-31); MEAN CORPUSCULAR HGB CONC 33 % (32-36); MEAN CORPUSCULAR VOLUME 87 fL (79.0-98.0); MONOCYTES # (AUTO) 0.8 K/uL (0.0-1.0); MONOCYTES % (AUTO) 8.8 % (1.7-9.3); NEUTROPHILS # (AUTO) 6.9 K/uL (1.8-7.7); NEUTROPHILS % (AUTO) 75.9 % (40.0-70.0); PLATELET COUNT (AUTO) 473 K/uL (130-430); RED BLOOD CELL COUNT(AUTO) 4.68 MIL/uL (4.2-6.2); RED CELL DISTRIBUTION WIDTH 14.7 % (9.0-15.0); WHITE BLOOD COUNT (AUTO) 9.1 K/uL (4.8-10.8)
[2019-09-30 07:32] LABS: CALCIUM 9.6 mg/dL (8.4-11.0); CREATININE 0.86 mg/dL (0.55-1.30); POTASSIUM 3.6 mmol/L (3.5-5.1)
[2019-09-30 08:00] VITALS: BP_SYST 134
--- NOTE | 2019-09-30 08:00 | NUR ---
initial notes rec patient awake alert with hob elevated. ivf infusing well on the l ac. no infiltration noted. bed to the lowest position and side rails up and locked. call light withn reached and knows when to call for help.
[2019-09-30] MEDS: CITALOPRAM HYDROBROMIDE 20 MG TABLET PO SCH (09:00)
--- NOTE | 2019-09-30 09:22 | NUR ---
PAGED PAGED AMBAR FOSTER AT [phone] SPOKE WITH CHERRY.
--- NOTE | 2019-09-30 09:30 | NUR ---
rounds speak with dr hoff and notified re result of the small bowel follow through and with orders.
[2019-09-30 12:26] VITALS: BP_SYST 136
--- NOTE | 2019-09-30 14:56 | NUR ---
rounds seen by dr hoff and with order for sx in am. speak with patient at bedside and explained procedure. ambulates at bedside and lon well at intervals. linus on the abd wound incision intact but with small drainage light brownish color noted on the lower incision.
[2019-09-30 16:24] VITALS: BP_SYST 145
[2019-09-30] MEDS: D5NS 1,000 ML IV SCH (19:26)
--- NOTE | 2019-09-30 19:30 | NUR ---
kathy notes pt signed consent for sx in am. ngtdraining to large amount of light greenish drainage. no sob noted. ngt connected to low cont suctioned. bed to the lowest positiona nd side rails up and locked.
--- NOTE | 2019-09-30 19:45 | NUR ---
OPENING NOTES Received report from BENJAMIN Hunt. Patient is awake, alert, oriented x 4, breathing evenly and nonlabored on room air. Patient has an IV on the left AC arm 18g, patent and benign at this time, IVF running, patient is tolerating it well. Patient has an NGT attached to suction, patient remains NPO. Educated patient on plan of care, fall/safety precautions, call light system, patient able to state understanding with return demonstration. Bed is locked, armed, and at lowest position, will continue to monitor.
[2019-09-30 20:37] VITALS: BP_SYST 131
[2019-09-30] MEDS: OLANZapine 5 MG TABLET PO SCH (21:00)
[2019-10-01 00:21] VITALS: BP_SYST 136
[2019-10-01] MEDS: MORPHINE 4 MG/ML INJ. SYRINGE IVP PRN ×6 (02:44→22:34)
[2019-10-01] MEDS: PIPERACILLIN/TAZO 3.375/DEX-IS 50 ML IV SCH ×3 (05:36→18:19)
--- NOTE | 2019-10-01 06:55 | NUR ---
Nutrition Update Anthony Scale 18 noted. Pt admitted for Small bowel obstruction Diet: NPO BMI: 24.7 kg/m2 RD to follow per nutrition care standards.
[2019-10-01 06:57] LABS: BASOPHILS # (AUTO) 0.1 K/uL (0.0-0.2); BASOPHILS % (AUTO) 0.8 % (0.0-2.0); EOSINOPHILS # (AUTO) 0.1 K/uL (0.0-0.4); HEMATOCRIT 39.5 % (36-54); HEMOGLOBIN 12.9 g/dL (14.0-18.0); LYMPHOCYTES # (AUTO) 1.8 K/uL (1.0-5.5); LYMPHOCYTES % (AUTO) 26.4 % (20.5-51.5); MEAN CORPUSCULAR HEMOGLOBIN 29 pg (27-31); MEAN CORPUSCULAR HGB CONC 33 % (32-36); MEAN CORPUSCULAR VOLUME 88 fL (79.0-98.0); MONOCYTES # (AUTO) 0.8 K/uL (0.0-1.0); MONOCYTES % (AUTO) 11.9 % (1.7-9.3); NEUTROPHILS % (AUTO) 58.9 % (40.0-70.0); PLATELET COUNT (AUTO) 485 K/uL (130-430); RED BLOOD CELL COUNT(AUTO) 4.52 MIL/uL (4.2-6.2); RED CELL DISTRIBUTION WIDTH 14.6 % (9.0-15.0); WHITE BLOOD COUNT (AUTO) 6.8 K/uL (4.8-10.8)
--- NOTE | 2019-10-01 06:59 | NUR ---
CLOSING NOTES Patient is awake, breathing evenly and nonlabored on room air. Patient has an IVF running, patient is tolerating it well. Patient consistently asked and received pain medication every 3 hours since 2044 yesterday. Patient has NGT attached to suction. Assisted patient to and from the bathroom. Needs met throughout the shift, will endorse care to morning shift RN.
[2019-10-01 07:07] LABS: CALCIUM 9.1 mg/dL (8.4-11.0); CREATININE 0.9 mg/dL (0.55-1.30); POTASSIUM 3.3 mmol/L (3.5-5.1)
[2019-10-01 07:40] VITALS: BP_SYST 154
[2019-10-01] MEDS: QUEtiapine FUMARATE 25 MG TABLET PO SCH ×2 (08:50→21:00)
[2019-10-01] MEDS: CITALOPRAM HYDROBROMIDE 20 MG TABLET PO SCH (08:50)
--- NOTE | 2019-10-01 08:56 | NUR ---
pain medication patient complains of pain medicated per order. patient states he needs to use restroom, assited to bathroom, gait is steady. educated marketing assistant retail division light for assistance. no other needs at this time. patients PO medicated not administered due to npo.
[2019-10-01] MEDS ORDERED: POTASSIUM CHLORIDE 40 MEQ, LIDOCAINE JECT 2% PF 100 MG 50 MG in NS 250 ML IV ONE (09:15)
[2019-10-01] MEDS: D5NS 1,000 ML IV SCH ×2 (09:51→22:01)
--- NOTE | 2019-10-01 10:26 | NUR ---
medication/ at bedside Patients scheduled medication given per order. Patient is sitting up in bed no signs of any distress, breathing is equal and non labored. md at bedside. patient has call light with him educated to use for assistance. no other needs at this time.
--- NOTE | 2019-10-01 11:00 | NUR ---
transferred to surgery patient transferred via gurney to surgery, chg bath done by vanessa. patient is awake and alert. Patient removed NGT states felt like he couldn't breath so he removed. or nurse made aware. patient is not nauseous at this time. patient has no other needs at this time.
[2019-10-01 12:00] VITALS: BP_SYST 132
[2019-10-01] MEDS ORDERED: LR 1,000 ML IV ONE (14:00)
[2019-10-01] MEDS ORDERED: ONDANSETRON HCL 4 MG/2 ML VIAL IVP PRN (14:00)
[2019-10-01] MEDS ORDERED: MIDAZOLAM HCL 5 MG/5 ML VIAL IVP PRN (14:00)
[2019-10-01] MEDS ORDERED: MORPHINE 4 MG/ML INJ. SYRINGE IVP PRN (14:00)
[2019-10-01] MEDS ORDERED: MEPERIDINE HCL/PF 25 MG/ML DISP.SYRIN IVP PRN (14:00)
[2019-10-01] MEDS ORDERED: ROCURONIUM BROMIDE 10 MG/ML (ZEMURON) ONE (15:05)
[2019-10-01] MEDS ORDERED: CEFAZOLIN 2 GM IVPB PREMIX 50 ML IV ONE (15:05)
[2019-10-01] MEDS ORDERED: ONDANSETRON HCL 4 MG/2 ML VIAL ONE (15:05)
[2019-10-01] MEDS ORDERED: MIDAZOLAM HCL 5 MG/ML VIAL (VERSED) IV ONE (15:05)
[2019-10-01] MEDS ORDERED: DESFLURANE 15 MIN GAS INH ONE (15:05)
[2019-10-01] MEDS ORDERED: PROPOFOL 200MG/ 20ML VIAL (DIPRIVAN) IV ONE (15:05)
[2019-10-01] MEDS ORDERED: fentaNYL CITRATE 250 MCG/5 ML AMP ONE (15:05)
[2019-10-01] MEDS ORDERED: NS IRRIG SOLN 1000 ML IR ONE (15:05)
[2019-10-01] MEDS ORDERED: SUGAMMADEX SODIUM 200 MG/2 ML VIAL IV ONE (15:05)
[2019-10-01] MEDS: HYDROmorphone 1 MG INJ. 1 MG/ML AMPUL IVP PRN ×6 (15:05→15:40)
[2019-10-01] MEDS ORDERED: LR 1,000 ML IV.SOLN IV ONE (15:05)
[2019-10-01] MEDS ORDERED: BUPIVACAINE /PF 0.5% 30 ML VIAL ONE (15:05)
[2019-10-01] MEDS ORDERED: HYDROmorphone 1 MG INJ. 1 MG/ML AMPUL ONE ×3 (15:23→15:50)
--- NOTE | 2019-10-01 16:06 | NUR ---
continuation of care patient is back in unit. patient is awake and alert, abdominal dressing is clean dry and intact, with no signs of active bleeding. spoke with Dr. Plummer received orders, remove Lane catheter, NPO ICE CHIPS ok. Change dressing as needed. ok to ambulate. patient informed will follow through.
--- NOTE | 2019-10-01 19:25 | NUR ---
Opening note Received patient awake, resting in bed. Presently reporting severe pain and BENJAMIN Hamlin just administered pain medication, I will follow-up. IVF infusing via IV to LAC. Bed is locked in lowest position and bed alarm on. Updated board and reviewed plan of care.
--- NOTE | 2019-10-01 19:28 | NUR ---
rn closing note pain medication patient complains of pain medicated per order. patient is awake and alert. patient able to inspire 1250 on IS. patient educated sanitation manager light for assistance. call light is with patient. report was endorsed to night nurse at bedside. patient has no other needs at this time. Addendum: 10/01/19 at 1933 by Yakelin Mills RN patient states he did pee a small amount after jeronimo catheter was removed.
[2019-10-01 20:00] VITALS: BP_SYST 134
[2019-10-01] MEDS: QUEtiapine FUMARATE 100 MG TABLET PO SCH (21:00)
[2019-10-01] MEDS: ZOLPIDEM TARTRATE 5 MG TABLET PO PRN (22:32)
--- NOTE | 2019-10-01 22:34 | NUR ---
Pain med / ambien Patient refused scheduled medication, Seroquel and said that he does not take this medication and refused meds. He said he takes Zyprexia and Thorazine. I informed that Dr Solano, psychologist stopped Zyprexia and started him on Seroquel. I let him know I would page . He reported severe pain 7-02/24 to abdomen and requested morphine. Presently denies nausea. Administered morphine 3 mg as ordered for severe pain. He also requested Benadryl to help him sleep and I informed him, he does not have Benaldryl ordered he has Ambien and he agreed to take Ambien.
--- NOTE | 2019-10-01 23:16 | NUR ---
Dr. Garcia s/w Dr. Garcia and informed patient has voided less than 100 ml since he came back from surgery at 1600. He said re-insert jeronimo catheter. I also informed him that he refused new medication, Seroquel which was ordered by Dr. Melendrez and hattie Gresham. Dr Garcia said medication request is to be handled by Dr Solano, but he also informed me not to call him for that medication right now, he said to wait till the morning.
[2019-10-02 00:20] VITALS: BP_SYST 122
--- NOTE | 2019-10-02 00:20 | NUR ---
Void, refused jeronimo catheter Patient voided 100 ml of tameka urine into urinal. He refused Jeronimo catheter stating he is voiding. I informed him MD said, Dr Solano would review meds in AM and he was ok, with waiting in AM.
[2019-10-02] MEDS: PIPERACILLIN/TAZO 3.375/DEX-IS 50 ML IV SCH ×4 (00:24→17:42)
--- NOTE | 2019-10-02 00:27 | NUR ---
Antibiotic Due medication, Zosyn, administered and infusing well. Educated on side effects and he verbalized understanding.
[2019-10-02] MEDS: MORPHINE 4 MG/ML INJ. SYRINGE IVP PRN ×8 (01:33→22:36)
--- NOTE | 2019-10-02 01:34 | NUR ---
pain med Patient reporting severe pain and administered morphine for severe pain as ordered; reviewed side effects and he verbalized understanding.
[2019-10-02] MEDS: LORazepam 2 MG/ML VIAL IVP PRN (01:43)
--- NOTE | 2019-10-02 04:35 | NUR ---
c/o pain Patient reporting severe pain and administered morphine for severe pain as ordered; He asked for ice chips and they were provided. He has not voided and I reminded him that we would insert the jeornimo if there is no urine output and he said, no doesn't want jeronimo, and said he will go.
--- NOTE | 2019-10-02 04:43 | NUR ---
void patient voided 200ml of tameka urine in urinal.
[2019-10-02] MEDS: D5NS 1,000 ML IV SCH ×2 (06:12→22:40)
[2019-10-02 06:34] LABS: BASOPHILS % (AUTO) 0.2 % (0.0-2.0); HEMATOCRIT 39.9 % (36-54); LYMPHOCYTES # (AUTO) 1.8 K/uL (1.0-5.5); LYMPHOCYTES % (AUTO) 20.3 % (20.5-51.5); MEAN CORPUSCULAR HEMOGLOBIN 29 pg (27-31); MEAN CORPUSCULAR HGB CONC 33 % (32-36); MEAN CORPUSCULAR VOLUME 88 fL (79.0-98.0); MONOCYTES # (AUTO) 0.7 K/uL (0.0-1.0); MONOCYTES % (AUTO) 8.2 % (1.7-9.3); NEUTROPHILS # (AUTO) 6.2 K/uL (1.8-7.7); NEUTROPHILS % (AUTO) 71.3 % (40.0-70.0); PLATELET COUNT (AUTO) 493 K/uL (130-430); RED BLOOD CELL COUNT(AUTO) 4.53 MIL/uL (4.2-6.2); RED CELL DISTRIBUTION WIDTH 14.5 % (9.0-15.0); WHITE BLOOD COUNT (AUTO) 8.7 K/uL (4.8-10.8)
[2019-10-02 07:48] LABS: CALCIUM 8.8 mg/dL (8.4-11.0); CREATININE 0.95 mg/dL (0.55-1.30); POTASSIUM 4.4 mmol/L (3.5-5.1)
[2019-10-02 08:00] VITALS: BP_SYST 123
[2019-10-02] MEDS: QUEtiapine FUMARATE 25 MG TABLET PO SCH ×2 (09:00→21:00)
[2019-10-02] MEDS: CITALOPRAM HYDROBROMIDE 20 MG TABLET PO SCH (09:00)
[2019-10-02 13:15] VITALS: BP_SYST 122
[2019-10-02 16:00] VITALS: BP_SYST 120
--- NOTE | 2019-10-02 16:27 | NUR ---
Nutrition F/U (short note d/t high patient load) RD reviewed pt's current EMR including diet Hx, physician notes, nursing notes, pertinent labs/meds/procedures, care trends, and care activity. Current Diet Order: Clear liquid x0 days Pt seen resting in bed earlier today -- POD #1 s/p exploratory laparotomy, extensive lysis of adhesions per EMR. Pt was not able to answer RD verbal interview questions as he was lethargic and was recently administered w/ pain med per RN report. RN stated pt has been tolerating diet well, but prefers to drink mostly apple juice. Pt is not yet meeting nutritional needs. Pt remains at high nutritional risk; RD to F/U within 2-3 days.
--- NOTE | 2019-10-02 19:00 | NUR ---
closing notes pt lon clear liquid preferes to drink wter. no osb noted. ivf infusing well. no infiltration oted. call light within reached.
--- NOTE | 2019-10-02 19:30 | NUR ---
Opening note / pain med Received patient awake, resting in bed. Presently reporting severe pain and I will administer Morphine for severe pain. VSS and no SOB. IVF infusing via IV to RAC. Bed is locked in lowest position and bed alarm on. Updated board and reviewed plan of care.
--- NOTE | 2019-10-02 19:35 | NUR ---
AMBULATION LATE ENTRY DUE TO PATIENT CARE 1440 ASSISTED PATIENT WITH AMBULATION IN THE HALLWAY. PATIENT WAS ABLE TO AMBULATE 30 FEET THEN REQUESTED TO RETURN TO BED. ENCOURAGED PATIENT TO USE INCENTIVE SPIROMETRY. PATIENT RESPONDED " i CANNOT DO THAT RIGHT NOW, I WILL DO IT LATER." EDUCATED ON NEED TO AMBULATE AND INCENTIVE SPIROMETRY USE. PATIENT VERBALIZED UNDER STANDING
--- NOTE | 2019-10-02 19:40 | NUR ---
incentive spirometer - refused Reviewed incentive spirometer and asked patient to demonstrate and he refused he said he it is painful to try. The RT came and asked him to try and he also told him, no he didn't want to try d/t pain. Will follow up.
[2019-10-02 20:00] VITALS: BP_SYST 122
[2019-10-02] MEDS: QUEtiapine FUMARATE 100 MG TABLET PO SCH (21:00)
--- NOTE | 2019-10-02 21:13 | NUR ---
PAGED I PAGED DR. LOPEZ I SPOKE WITH SAVANAH EXCHANGE
--- NOTE | 2019-10-02 22:40 | NUR ---
c/o pain / IVF Patient reporting severe pain and administered morphine for severe pain as ordered; He asked me to call MD and ask for stronger pain control med. IVF empty; replaced and hung new bag and infusing as ordered at 80 ml/hr.
--- NOTE | 2019-10-02 23:16 | NUR ---
Dr. Garcia s/w Dr. Garcia and informed patient is stating that 3mg Morphine is not helping, he wants stronger pain med and Dr. Garcia replied, "No he is not getting more medication"; No change / No new orders for pain medication given.
--- NOTE | 2019-10-02 23:40 | NUR ---
Dr. Melendrez s/w Dr. Melendrez and informed patient is refusing Seroquel and wants to take Zyprexia and Thorazine which he states are his regular scheduled meds. Dr Melendrez provided orders to stop Seroquel and ordered Zyprexia 10 mg and Thorazine 100mg BID, read back orders and entered in [employer].
[2019-10-02] MEDS ORDERED: THORAZINE (chlorproMAZINE) 100 MG TAB PO SCH (23:45)
[2019-10-03 00:30] VITALS: BP_SYST 124
[2019-10-03] MEDS: OLANZapine 10 MG TABLET PO SCH ×2 (00:30→08:11)
[2019-10-03] MEDS: PIPERACILLIN/TAZO 3.375/DEX-IS 50 ML IV SCH ×5 (00:37→23:19)
--- NOTE | 2019-10-03 00:40 | NUR ---
meds / antibiotic Zyprexia and Thorazine administered and also due antibiotic, Zosyn, was administered and infusing well, educated on side effects and he verbalized understanding.
[2019-10-03] MEDS ORDERED: THORAZINE (chlorproMAZINE) 25 MG TAB ONE (00:44)
[2019-10-03] MEDS: MORPHINE 4 MG/ML INJ. SYRINGE IVP PRN ×8 (01:30→23:20)
--- NOTE | 2019-10-03 01:30 | NUR ---
PAIN MED Patient reporting severe pain to abdomen and morphine 3mg was administered as ordered. Will continue to monitor. Safety precautions in place and call light w/in reach.
--- NOTE | 2019-10-03 02:02 | NUR ---
resting Patient is resting w/eyes closed, nonlabored breathing noted. I did not wake him up and let him sleep IVF infusing well, safety precautions in place and call light near.
--- NOTE | 2019-10-03 04:37 | NUR ---
pain med Patient reporting abdominal pain 8/10 and Morphine 3mg for severe pain was given as ordered. Will continue to monitor.
--- NOTE | 2019-10-03 05:43 | NUR ---
Dr. Melendrez rounds Dr. Melendrez at [facility] unit making rounds on patient
--- NOTE | 2019-10-03 06:30 | NUR ---
closing note due antibiotic given. Patient resting w/ eyes closed, yet arousable. No SOB or distress. IVF infusing well. Needs met throughout shift, will endorse care to incoming day shift nurse.
--- NOTE | 2019-10-03 07:25 | NUR ---
INITIAL NOTE PATIENT AWAKE, PAIN CONTROLLED AT THIS TIME. IVF INFUSING WELL. SCD'S IN PLACE. CALL LIGHT WITHIN REACH, BED IN LOW AND LOCKED POSITION WITH BED ALARM ON.
[2019-10-03 08:00] VITALS: BP_SYST 116
[2019-10-03] MEDS: CITALOPRAM HYDROBROMIDE 20 MG TABLET PO SCH (08:11)
--- NOTE | 2019-10-03 09:06 | NUR ---
RN ROUNDS/DR. TIMMY MASON AT BEDSIDE EXAMINING PATIENT. INFORMED PT ABDOMEN IS DISTENDED. PT STATES HE IS PASSING A LITTLE BIT OF GAS. PT WILL NOT BE CLEARED FOR DISCHARGE TODAY PER DR. WARNER. TO CONTINUE ON WITH CLEAR LIQUIDS TODAY. VERIFIED WITH READ BACK.
--- NOTE | 2019-10-03 09:29 | NUR ---
DR. LEO MASON AT BEDSIDE EXAMINING PT. INFORMED MD THAT DR. WARNER HAS NOT CLEARED THE PATIENT FOR DISCHARGE, CONTINUE WITH CLEAR LIQUID DIET. MD TO CONTINUE WITH CURRENT PLAN OF CARE.
[2019-10-03] MEDS: D5NS 1,000 ML IV SCH ×2 (11:15→20:52)
--- NOTE | 2019-10-03 11:16 | NUR ---
AMBULATED TO RESTROOM ASSISTED PT WITH IV POLE, PT AMBULATED TO RESTROOM WITH STEADY GAIT. PT STATES HE HAS ABDOMINAL PAIN. EDUCATED PT USES AND SIDE EFFECTS OF MORPHINE. PT VERBALIZED UNDERSTANDING. PRN MORPHINE ADMINISTERED. EDUCATED PT TO DRINK WATER AND AMBULATE WHEN HE CAN TO HELP PASS GAS. PT VERBALIZED UNDERSTANDING.
[2019-10-03 12:54] VITALS: BP_SYST 123
--- NOTE | 2019-10-03 13:30 | NUR ---
RN ROUNDS PT RESTING QUIETLY IN, NO CHANGE IN ASSESSMENT. WILL CONTINUE TO MONITOR.
--- NOTE | 2019-10-03 14:33 | NUR ---
BOWEL MOVEMENT/PASSED GAS PT PASSED GAS AND HAD BOWEL MOVEMENT IN BED. CHANGED PT AND LINEN. PT TOLERATED WELL. WILL CONTINUE TO MONITOR.
--- NOTE | 2019-10-03 16:28 | NUR ---
RN ROUNDS PT RESTING IN BED, PAIN CONTROLLED AT THIS TIME. WILL CONTINUE TO MONITOR.
[2019-10-03 16:53] VITALS: BP_SYST 127
--- NOTE | 2019-10-03 17:39 | NUR ---
INCONTINENT PT INCONTINENT OF BOWEL. CHANGED PT AND GOWN. PT TOLERATED WELL.
--- NOTE | 2019-10-03 18:45 | NUR ---
CLOSING NOTE PT RESTING QUIETLY IN BED. NO ACUTE DISTRESS NOTED, BREATHING EVEN AND UNLABORED. PAIN CONTROLLED AT THIS TIME. IVF INFUSING WELL. PT REFUSED SCD'S, PT AMBULATES TO RESTROOM WITH STEADY GAIT. CALL LIGHT WITHIN REACH, BED IN LOW AND LOCKED POSITION WITH BED ALARM ON. ALL NEEDS MET THROUGHOUT SHIFT. WILL CONTINUE TO MONITOR UNTIL PT CARE IS ENDORSED TO LIVESTOCK BUYER RN.
--- NOTE | 2019-10-03 19:30 | NUR ---
OPENING NOTE PT RESTING IN BED. NO ACUTE DISTRESS NOTED, BREATHING EVEN AND UNLABORED. PT INFORMED OF TIME FOR NEXT PAIN MEDICATION. IVF INFUSING WELL. SAFETY PRECAUTION IN PLACED. CALL LIGHT WITHIN REACH, BED IN LOW AND LOCKED POSITION WITH BED ALARM ON. WILL MONITOR.
[2019-10-03 20:00] VITALS: BP_SYST 132
[2019-10-03] MEDS: THORAZINE (chlorproMAZINE) 25 MG TAB PO SCH (20:18)
--- NOTE | 2019-10-03 20:19 | NUR ---
PAIN/MORPHINE MEDICATION PATIENT REPORTING SEVERE PAIN TO STOMACH AND MORPHINE 3MG ADMINISTERED ORDERED. SAFETY AND FALL PRECAUTION IN PLACE AND CALL LIGHT WITH PATIENT. WILL MONITOR.
--- NOTE | 2019-10-03 23:20 | NUR ---
PAIN/MORPHINE MEDICATION PATIENT REPORTING SEVERE PAIN TO STOMACH AND MORPHINE 3MG ADMINISTERED ORDERED. SAFETY AND FALL PRECAUTION IN PLACE AND CALL LIGHT WITH PATIENT. WILL MONITOR.
--- NOTE | 2019-10-04 01:32 | NUR ---
RESTING PT RESTING IN BED. NO S/S ACUTE DISTRESS NOTED AT THIS TIME. BREATHING UNLABORED TO ROOM AIR. SAFETY AND FALL PRECAUTION IN PLACE. WILL CONTINUE TO MONITOR.
[2019-10-04 01:58] VITALS: BP_SYST 147
[2019-10-04] MEDS: MORPHINE 4 MG/ML INJ. SYRINGE IVP PRN ×6 (02:30→17:48)
--- NOTE | 2019-10-04 02:30 | NUR ---
PAIN/MORPHINE MEDICATION PATIENT REPORTING SEVERE PAIN TO STOMACH AND MORPHINE 3MG ADMINISTERED ORDERED. SAFETY AND FALL PRECAUTION IN PLACE AND CALL LIGHT WITH PATIENT. WILL MONITOR.
[2019-10-04] MEDS: PIPERACILLIN/TAZO 3.375/DEX-IS 50 ML IV SCH (05:31)
--- NOTE | 2019-10-04 05:35 | NUR ---
MORPHINE/ZOSYN PATIENT REPORTING SEVERE PAIN TO STOMACH. MORPHINE 3MG ADMINISTERED ORDERED PRN. SCHEDULED ZOSYN HUNG IVPB. NO S/S OF ADVERSE REACTION NOTED. SAFETY AND FALL PRECAUTIONS ARE IN PLACE. WILL MONITOR.
[2019-10-04 06:22] LABS: CALCIUM 8.1 mg/dL (8.4-11.0); CREATININE 0.77 mg/dL (0.55-1.30); POTASSIUM 3.3 mmol/L (3.5-5.1)
--- NOTE | 2019-10-04 06:34 | NUR ---
CLOSING NOTE PT RESTING IN BED. NO ACUTE DISTRESS NOTED, BREATHING EVEN AND UNLABORED. IVF INFUSING AT ORDERED RATE. SAFETY PRECAUTION IN PLACED. CALL LIGHT WITHIN REACH, BED IN LOW AND LOCKED POSITION WITH BED ALARM ON. WILL CONTINUE TO MONITOR UNTIL ENDORSE TO MARGARITO SHIFT RN.
--- NOTE | 2019-10-04 07:40 | NUR ---
INITIAL NOTE PT AWAKE, RESTING IN BED, PAIN CONTROLLED AT THIS TIME. INFORMED PT NEXT PAIN MEDICATION CAN BE ADMINISTERED AT 0832. PT VERBALIZED UNDERSTANDING. IV INFUSING WELL. SCD'S OFF AT THIS TIME. CALL LIGHT WITHIN REACH, BED IN LOW AND LOCKED POSITION WITH BED ALARM ON.
[2019-10-04 08:00] VITALS: BP_SYST 120
[2019-10-04] MEDS: CITALOPRAM HYDROBROMIDE 20 MG TABLET PO SCH (08:32)
[2019-10-04] MEDS: OLANZapine 10 MG TABLET PO SCH (08:33)
[2019-10-04] MEDS: POTASSIUM CHLORIDE 20 MEQ TAB.PRT.SR PO PRN (08:33)
[2019-10-04] MEDS ORDERED: POTASSIUM CHLORIDE 20 MEQ/PKT PACKET PO ONE (08:45)
--- NOTE | 2019-10-04 09:30 | NUR ---
RN ROUNDS PAIN CONTROLLED AT THIS TIME. EMPTIED OUT URINAL. 400CC OUT, CLEAR AND YELLOW. WILL CONTINUE TO MONITOR.
--- NOTE | 2019-10-04 09:45 | NUR ---
DR. BAILEY SPOKE WITH MD VIA PHONE, PER MD HE WOULD LIKE TO BE CALLED IF PT IS CLEARED BY DR. WARNER. VERIFIED WITH READ BACK.
[2019-10-04] MEDS: NACL 0.9% 1,000 ML IV SCH ×2 (10:37→21:03)
--- NOTE | 2019-10-04 11:33 | NUR ---
PAIN MEDICATION PT COMPLAINING OF ABDOMINAL PAIN. EDUCATED PT ON USES AND SIDE EFFECTS OF MORPHINE. PT VERBALIZED UNDERSTANDING. PRN MORPHINE ADMINISTERED. WILL CONTINUE TO MONITOR.
[2019-10-04 12:31] VITALS: BP_SYST 123
--- NOTE | 2019-10-04 13:33 | NUR ---
RN ROUNDS EDUCATED PT ON USE OF INCENTIVE SPIROMETER. PT DEMONSTRATED TEACH BACK 1000 VOL. REFUSED TO DO MORE, PT STATES ABDOMEN HURTS WHEN HE USES IS.
--- NOTE | 2019-10-04 15:33 | NUR ---
RN ROUNDS PT RESTING IN BED. PAIN CONTROLLED. EDUCATED PT ON PURPOSE OF AMBULATING. PT VERBALIZED UNDERSTANDING. PT STATES HE HAS BEEN AMBULATING TO BATHROOM. PT DID NOT MAKE IT TO RESTROOM IN TIME AND HAD BOWEL MOVEMENT ON FLOOR. CLEANED PT UP.
[2019-10-04 16:11] VITALS: BP_SYST 132
--- NOTE | 2019-10-04 17:48 | NUR ---
PAIN MEDICATION PT COMPLAINING OF ABDOMINAL PAIN. EDUCATED PT ON USES AND SIDE EFFECTS OF MORPHINE. PT VERBALIZED UNDERSTANDING. PRN MORPHINE ADMINISTERED. WILL CONTINUE TO MONITOR
--- NOTE | 2019-10-04 18:24 | NUR ---
CLOSING NOTE PT RESTING IN BED, EATING DINNER. PAIN CONTROLLED AT THIS TIME. IVF INFUSING WELL. SCD'S OFF AT THIS TIME. CALL LIGHT WITHIN REACH, BED IN LOW AND LOCKED POSITION. ALL NEEDS MET THROUGHOUT SHIFT. WILL CONTINUE TO MONITOR UNTIL PT CARE IS ENDORSED TO TIP STRETCHER RN.
--- NOTE | 2019-10-04 19:45 | NUR ---
A/A/O X4.DENIES ANY DISCOMFORT @ THIS TIME. DENIES SOB.O2 SAT ON RA 95%.IVF NS @90ML/HR INFUSING WELL ON HIS RAC.NOTED ABD DISTENDED BUT SOFT TO TOUCH (+) BOWEL SOUNDS.ABD DRESSING D/I. INSTRUCTED TO USE CALL LIGHT NEEDED;WITHIN REACH.
[2019-10-04 20:00] VITALS: BP_SYST 127
--- NOTE | 2019-10-04 20:00 | NUR ---
AFEBRILE. BP 127/81,VT 105.
[2019-10-04] MEDS: THORAZINE (chlorproMAZINE) 25 MG TAB PO SCH (21:02)
--- NOTE | 2019-10-04 21:05 | NUR ---
C/O PAIN ON HIS ABD SCALE 8/10.MORPHINE IV ADM.
--- NOTE | 2019-10-04 21:35 | NUR ---
PER PT PAIN STILL PERSIST BUT DECREASED TO SCALE 5/10.
--- NOTE | 2019-10-04 22:45 | NUR ---
ABD DRESSING PULLED BY PT STATED IT'S SO DIRTY. DRESSING CHANGED TO DRY GAUZE THEN ABD DRESSING.
[2019-10-05] VITALS (9 sets, daily range): BP systolic 113–139
[2019-10-05] MEDS: MORPHINE 4 MG/ML INJ. SYRINGE IVP PRN ×3 (00:11→06:23)
--- NOTE | 2019-10-05 00:39 | NUR ---
AFEBRILE.BP 139/82,WA 114.
--- NOTE | 2019-10-05 02:00 | NUR ---
VOIDING FREELY THRU THE URINAL.
--- NOTE | 2019-10-05 04:00 | NUR ---
RESTING COMFORTABLY IN NO ACUTE DISTRESS.
--- NOTE | 2019-10-05 06:50 | NUR ---
ENDORSED IN NO ACUTE DISTRESS.SAFETY MAINTAINED.
[2019-10-05 07:59] LABS: CREATININE 0.58 mg/dL (0.55-1.30); POTASSIUM 3.4 mmol/L (3.5-5.1)
--- NOTE | 2019-10-05 08:29 | NUR ---
dr kent here and seen pt.
[2019-10-05] MEDS: HYDROcodone/ACETAMIN 10-325 MG TAB PO PRN ×3 (08:54→23:39)
[2019-10-05] MEDS: CITALOPRAM HYDROBROMIDE 20 MG TABLET PO SCH (08:54)
[2019-10-05] MEDS: OLANZapine 10 MG TABLET PO SCH (08:54)
[2019-10-05] MEDS: POTASSIUM CHLORIDE 20 MEQ TAB.PRT.SR PO PRN (08:54)
[2019-10-05] MEDS: NACL 0.9% 1,000 ML IV SCH ×2 (08:58→23:39)
[2019-10-05] MEDS ORDERED: MORPHINE SULFATE 10 MG/ML VIAL IVP PRN (09:01)
[2019-10-05] MEDS: MORPHINE SULFATE 10 MG/ML VIAL IVP PRN ×3 (12:58→21:35)
--- NOTE | 2019-10-05 15:17 | NUR ---
Nutrition F/U (short note d/t high patient load) RD reviewed pt's current EMR including diet Hx, physician notes, nursing notes, pertinent labs/meds/procedures, care trends, and care activity. Current Diet Order: Full liquid x0 days Pt seen resting in bed earlier today prior to lunch -- POD #4 s/p exploratory laparotomy, extensive lysis of adhesions per EMR. Plans for pt to start on full liquid diet. Pt c/o feelings of constipation d/t no BM for past 2-[address] encouraged pt to try to consume what he can of full liquid meal, as this may stimulate bowel function. Per EMR, PO intake average of 53% x6 meals. Pt is now at moderate nutritional risk; RD to F/U within 3-5 days.
--- NOTE | 2019-10-05 15:20 | NUR ---
abdominal wound care dressing change. abdominal is soft but distended, swelling noted on the abdominal surgery site. retention sutures intact,
--- NOTE | 2019-10-05 19:45 | NUR ---
INITIAL NOTES PATIENT IS LAYING IN BED AND STABLE. NO S/S OF RESPIRATORY DISTRESS NOTED. PATIENT SUCCESSFULLY DEMONSTRATES USAGE OF CALL LIGHT. BED IS LOCKED, ALARMED, AND AT THE LOWEST POSITION. FALL, SAFETY, ASPIRATION, AND RESPIRATORY PRECAUTIONS WILL IN PLACE THROUGHOUT THE SHIFT. PLAN OF CARE IS DISCUSSED WITH PATIENT.
--- NOTE | 2019-10-05 19:57 | NUR ---
ENDORSED PT TO NIGHT NURSE , MYRIAM, PT ON STABLE CONDITION, NO VOMITING, TOLERATED FULL LIQUID DIET, PT HAS 1X DIARRHEA, SAMPLE SENT FOR CDIFF. PT GIVEN PAIN MEDS PRN. NIGHT RN AWARE TO ADVANCE DIET TOLERATED.
[2019-10-05] MEDS: THORAZINE (chlorproMAZINE) 25 MG TAB PO SCH (20:27)
--- NOTE | 2019-10-05 21:45 | NUR ---
ROUNDING PATIENT IS LAYING IN BED AND WATCHING TV. PATIENT IS STABLE. NO S/S OF RESPIRATORY DISTRESS NOTED. CALL LIGHT IN REACH. BED IS LOCKED, ALARMED, AND AT THE LOWEST POSITION.
--- NOTE | 2019-10-05 23:45 | NUR ---
ROUNDING PATIENT IS LAYING IN BED AND STABLE. NO S/S OF RESPIRATORY DISTRESS. CALL LIGHT IN REACH. BED IS LOCKED, ALARMED, AND AT THE LOWEST POSITION.
--- NOTE | 2019-10-06 00:45 | NUR ---
ROUNDING PATIENT IS SLEEPING AND STABLE. NO S/S OF RESPIRATORY DISTRESS NOTED. CALL LIGHT IN REACH. BED IS LOCKED, ALARMED, AND AT THE LOWEST POSITION.
[2019-10-06] MEDS: MORPHINE SULFATE 10 MG/ML VIAL IVP PRN ×6 (01:40→21:58)
--- NOTE | 2019-10-06 02:45 | NUR ---
ROUNDING PATIENT IS SLEEPING AND STABLE. NO S/S OF RESPIRATORY DISTRESS NOTED. CALL LIGHT IN REACH. BED IS LOCKED, ALARMED, AND AT THE LOWEST POSITION.
--- NOTE | 2019-10-06 04:05 | NUR ---
ROUNDING PATIENT IS LAYING IN BED AND STABLE. NO S/S OF RESPIRATORY DISTRESS NOTED. CALL LIGHT IN REACH. BED IS LOCKED, ALARMED, AND AT THE LOWEST POSITION.
[2019-10-06 05:58] LABS: CREATININE 0.59 mg/dL (0.55-1.30); POTASSIUM 3.8 mmol/L (3.5-5.1)
--- NOTE | 2019-10-06 06:29 | NUR ---
CLOSING NOTES PATIENT IS STABLE AND LAYING IN BED. NO S/S OF RESPIRATORY DISTRESS NOTED. CALL LIGHT IN REACH. BED IS LOCKED, ALARMED, AND AT THE LOWEST POSITION. FALL, SAFETY, ASPIRATION, AND RESPIRATORY PRECAUTIONS HAS BEEN IN PLACE THROUGHOUT THE SHIFT. WILL CONTINUE TO MONITOR UNTIL REPORT IS GIVEN TO AM NURSE BY BEDSIDE.
[2019-10-06] MEDS: HYDROcodone/ACETAMIN 10-325 MG TAB PO PRN ×3 (07:44→23:59)
[2019-10-06 08:00] VITALS: BP_SYST 123
--- NOTE | 2019-10-06 08:00 | NUR ---
ASSUMPTION OF CARE: RECEIVED PT A/A/OX4, DX:DIARRHEA, R/T SMALL BOWEL OBSTRUCTION, PT HAVING FREQUENT LOOSE STOOLS WITH INCONTINENCE, AFEBRILE, C/O PAIN 6/10 VIA NUMERIC SCALL, WILL MEDICATE, PER ORDERED BY Gary, NO S/S OF DISTRESS, BREATH SOUNDS ARE CLEAR, BREATHING UNLABORED, ABDOMINAL INCISION COVERED WITH DRSG, THAT REMAINS, CLEAN, DRY AND INTACT, TOLERATING FULL LIQUID DIET, IV SITE INTACT, PATENT, NO REDNESS OR SWELLING, ORIENTED TO UNIT, CALL LIGHT PLACED WITHIN REACH, WILL CONT' TO MONITOR AND ASSESS.
[2019-10-06] MEDS: CITALOPRAM HYDROBROMIDE 20 MG TABLET PO SCH (08:53)
[2019-10-06] MEDS: OLANZapine 10 MG TABLET PO SCH (08:53)
--- NOTE | 2019-10-06 09:00 | NUR ---
BEEF TAGGER: MORNING MEDS GIVEN, PER ORDERED BY Gary, TOLERATED WELL, WILL CONT' TO MONITOR AND ASSESS.
--- NOTE | 2019-10-06 09:00 | NUR ---
CLOTH STOCK SORTER: MORNING MEDS GIVEN, PER ORDERED BY Gary, TOLERATED WELL, WILL CONT' TO MONITOR AND ASSESS.
--- NOTE | 2019-10-06 09:45 | NUR ---
PAIN: PT C/O PAIN, 10/10 VIA NUMERIC SCALE, MED GIVEN 1 MG MORPHINE IVP, PER ORDERED BY Gary, TOLERATED WELL, WILL CONT' TO MONITOR AND ASSESS.
[2019-10-06 12:30] VITALS: BP_SYST 127
--- NOTE | 2019-10-06 13:20 | NUR ---
ABNORMAL LAB RESULTS: RECEIVED LAB RESULT FOR STOOL SAMPLE, (+) C-DIFF, DR. BAILEY NOTIFIED, NEW ORDERS GIVEN, PT PLACED ON CONTACT ISOLATION, WILL CONT' WITH POC.
--- NOTE | 2019-10-06 13:28 | NUR ---
PAGED PAGED KI MARTINEZ AT [phone] SPOKE WITH KI MARTINEZ.
--- NOTE | 2019-10-06 13:30 | NUR ---
INFECTIOUS DISEASE: SPOKE WITH , PER REQUESTED BY Gary, RESULTS GIVEN AT THIS TIME, NO NEW ORDER, WILL CONT' WITH POC.
--- NOTE | 2019-10-06 13:31 | NUR ---
PAGED PAGED SHONDA SHERMAN AT [phone]BEGUM BERNY PRIVATE EQUITY ANALYST.
--- NOTE | 2019-10-06 13:50 | NUR ---
PAIN: PT C/O PAIN, 10/10 VIA NUMERIC SCALE, MED GIVEN 1 MG MORPHINE IVP, PER ORDERED BY Gary, TOLERATED WELL, WILL CONT' TO MONITOR AND ASSESS.
[2019-10-06] MEDS: VANCOMYCIN HCL ORAL SOLUTION 250 MG/5 ML, 80 ML PO SCH ×3 (15:01→20:14)
[2019-10-06 16:58] VITALS: BP_SYST 127
--- NOTE | 2019-10-06 17:00 | NUR ---
WOUND CARE: DRESSING CHANGE ON ABDOMINAL INCISION COMPLETED AT THIS TIME, CLEANSED WITH BETADINE SOLUTION, SMALL AMT OF YELLOW COLORED DRAINAGE NOTED AT LOWER PORTION OF ABDOMEN, SARAHY INTACT, NO REDNESS OR ODOR NOTED, PT DENIES PAIN, COVERED WITH 4X4 GAUZE AND ABDOMINAL DRESSING, TOLERATED WELL, WILL CONT' WITH PLAN OF CARE.
[2019-10-06 17:13] VITALS: BP_SYST 127
[2019-10-06] MEDS: NACL 0.9% 1,000 ML IV SCH (17:14)
--- NOTE | 2019-10-06 17:50 | NUR ---
PAIN: PT C/O PAIN, 10/10 VIA NUMERIC SCALE, MED GIVEN 1 MG MORPHINE IVP, PER ORDERED BY Gary, TOLERATED WELL, WILL CONT' TO MONITOR AND ASSESS.
[2019-10-06 19:20] VITALS: BP_SYST 137
--- NOTE | 2019-10-06 19:20 | NUR ---
INITIAL NOTES PATIENT IS STABLE AND LAYING IN BED. NO S/S OF RESPIRATORY DISTRESS NOTED. PATIENT SUCCESSFULLY DEMONSTRATES USAGE OF CALL LIGHT AT THIS TIME. BED IS LOCKED, ALARMED, AND AND AT THE LOWEST POSITION. FALL, SAFETY, RESPIRATORY, ASPIRATION, AND CONTACT PRECAUTIONS WILL BE IN PLACE THROUGHOUT THE SHIFT. PLAN OF CARE IS DISCUSSED WITH PATIENT AT THIS TIME.
[2019-10-06] MEDS: THORAZINE (chlorproMAZINE) 25 MG TAB PO SCH (20:14)
--- NOTE | 2019-10-06 22:16 | NUR ---
DRESSING CHECKED. DRESSING IS CLEAN, DRY, AND INTACT. NO DRAINAGE NOTED. AFTER GIVING PAIN MEDICATION, PEAKED TO THE SIDE AND NO DRAINAGE NOTED AT THE INCISION SITE AT THIS TIME. WILL MONITOR DRESSING AND IF NEEDED WILL CHANGE DRESSING BEFORE SHIFT CHANGE PER REPORT RECEIVED FROM DAY SHIFT DRESSING WAS ALREADY CHANGED.
[2019-10-06] MEDS: ZOLPIDEM TARTRATE 5 MG TABLET PO PRN (23:00)
[2019-10-06 23:41] VITALS: BP_SYST 128
--- NOTE | 2019-10-07 00:16 | NUR ---
ROUNDING PATIENT IS SLEEPING IN BED AND STABLE. NO S/S OF RESPIRATORY DISTRESS NOTED. CALL LIGHT IN REACH. BED IS LOCKED, ALARMED, AND AT THE LOWEST POSITION.
--- NOTE | 2019-10-07 02:16 | NUR ---
ROUNDING PATIENT IS SLEEPING AND STABLE. NO S/S OF RESPIRATORY DISTRESS NOTED. CALL LIGHT IN REACH. BED IS LOCKED, ALARMED, AND AT THE LOWEST POSITION.
[2019-10-07] MEDS: MORPHINE SULFATE 10 MG/ML VIAL IVP PRN ×5 (03:13→20:45)
--- NOTE | 2019-10-07 06:28 | NUR ---
CLOSING NOTES PATIENT IS STABLE AND LAYING IN BED. NO S/S OF RESPIRATORY DISTRESS NOTED. CALL LIGHT IN REACH. BED IS LOCKED, ALARMED, AND AT THE LOWEST POSITION. FALL, SAFETY, ASPIRATION, RESPIRATORY, AND CONTACT PRECAUTIONS HAS BEEN IN PLACE THROUGHOUT THE SHIFT. WILL CONTINUE TO MONITOR UNTIL REPORT IS GIVEN TO AM NURSE BY BEDSIDE.
[2019-10-07] MEDS: HYDROcodone/ACETAMIN 10-325 MG TAB PO PRN ×2 (06:39→18:34)
--- NOTE | 2019-10-07 07:15 | NUR ---
OPENING NOTES PT AWAKE, ALERT, AND ORIENTED. NONLABORED BREATHING NOTED ON ROOM AIR, O2 AT 96%. NO ACUTE DISTRESS NOTED. PT DENIES PAIN AT THIS TIME. IV LINE INTACT AND PATENT, NO SIGNS OF INFILTRATION NOTED. SURGICAL DRESSING ON ABDOMEN CLEAN, DRY, AND INTACT. BED LOCKED AND IN LOWEST POSITION. ALL NEEDS MET. CALL LIGHT IN REACH. FALL, ASPIRATION, AND CONTACT PRECAUTIONS IN PLACE. CONTINUE TO MONITOR.
[2019-10-07 08:00] VITALS: BP_SYST 130
[2019-10-07] MEDS: OLANZapine 10 MG TABLET PO SCH (08:10)
[2019-10-07] MEDS: CITALOPRAM HYDROBROMIDE 20 MG TABLET PO SCH (08:10)
[2019-10-07] MEDS: VANCOMYCIN HCL ORAL SOLUTION 250 MG/5 ML, 80 ML PO SCH ×3 (08:11→20:43)
--- NOTE | 2019-10-07 08:11 | NUR ---
ROUTINE MEDS/PRN MEDS ROUTINE MEDS ADMINISTERED ORDERED PER MD, EDUCATION GIVEN, TOLERATED WELL. PT C/O PAIN, PAIN MEDS ADMINISTERED ORDERED PER MD, EDUCATION GIVEN, TOLERATED WELL. ALL NEEDS MET. CALL LIGHT IN REACH. CONTINUE TO MONITOR.
[2019-10-07] MEDS: NACL 0.9% 1,000 ML IV SCH (10:43)
--- NOTE | 2019-10-07 10:43 | NUR ---
FLUIDS FLUIDS ADMINISTERED ORDERED PER MD, IV LINE INTACT AND PATENT, NO SIGNS OF INFILTRATION NOTED. EDUCATION GIVEN, TOLERATED WELL. NO ACUTE DISTRESS NOTED. ALL NEEDS MET. CALL LIGHT IN REACH. CONTINUE TO MONITOR.
--- NOTE | 2019-10-07 12:26 | NUR ---
PAIN MEDS PT C/O PAIN ON ABDOMEN. PAIN MEDS ADMINISTERED ORDERED PER MD, EDUCATION GIVEN, TOLERATED WELL. ALL NEEDS MET. CALL LIGHT IN REACH. CONTINUE TO MONITOR.
[2019-10-07 12:31] VITALS: BP_SYST 119
--- NOTE | 2019-10-07 13:32 | NUR ---
ROUTINE MEDS ROUTINE MEDS ADMINISTERED ORDERED PER MD, EDUCATION GIVEN, TOLERATED WELL. NO ACUTE DISTRESS NOTED. ALL NEEDS MET. CALL LIGHT IN REACH. CONTINUE TO MONITOR.
--- NOTE | 2019-10-07 15:00 | NUR ---
ENCOURAGED PT TO AMBULATE AND USE INCENTIVE SPIROMETER, EDUCATION GIVEN. PT VERBALIZED UNDERSTANDING. REACHED 2000ML ON INCENTIVE SPIROMETER.
--- NOTE | 2019-10-07 16:30 | NUR ---
PAIN PRN MEDS PT C/O PAIN ON ABDOMEN, ADMINISTERED PAIN MEDS ORDERED PER MD, EDUCATION GIVEN, TOLERATED WELL. NO ACUTE DISTRESS NOTED. ALL NEEDS MET. CALL LIGHT IN REACH. CONTINUE TO MONITOR.
[2019-10-07 16:45] VITALS: BP_SYST 114
--- NOTE | 2019-10-07 18:49 | NUR ---
CLOSING NOTES PT AWAKE, ALERT, AND ORIENTED, WATCHING TELEVISION. NONLABORED BREATHING NOTED ON ROOM AIR, NO USE OF ACCESSORY MUSCLES NOTED. NO ACUTE DISTRESS NOTED. PT DENIES PAIN AT THIS TIME. SURGICAL DRESSING ON ABDOMEN CLEAN, DRY, AND INTACT. IV LINE INTACT AND PATENT, NO SIGNS OF INFILTRATION NOTED, FLUIDS RUNNING ORDERED PER MD, TOLERATING WELL. BED LOCKED AND IN LOWEST POSITION. ALL NEEDS MET. CALL LIGHT IN REACH. FALL, ASPIRATION, AND CONTACT PRECAUTIONS IN PLACE. WILL ENDORSE TO NOC NURSE.
--- NOTE | 2019-10-07 19:40 | NUR ---
OPENING NOTE RECEIVED REPORT FROM GLADYSFT RN, PATIENT RESTING IN BED, AWAKE WATCHING TV, NO SIGN OF ACUTE DISTRESS, EVEN AND UNLABORED BREATHING ON ROOM AIR, IV TO RIGHT AC INFUSING NS @60ML/HR, PATENT/BENIGN. SAFETY AND FALL PRECAUTIONS IN PLACE, PATIENT REFUSED BED ALARM DESPITE EDUCATION, PATIENT ABLE TO DEMONSTRATE PROPER USE OF CALL LIGHT, BED LOCKED AND IN LOWEST POSITION, TWO SIDE RAILS UP, CALL LIGHT WITH PATIENT, CONTACT ISOLATION PRECAUTIONS IN PLACE, WILL CONTINUE TO MONITOR.
[2019-10-07 20:00] VITALS: BP_SYST 136
[2019-10-07] MEDS: THORAZINE (chlorproMAZINE) 25 MG TAB PO SCH (20:44)
--- NOTE | 2019-10-07 20:45 | NUR ---
PAIN PATIENT COMPLAINS OF 8/10 PAIN TO HIS ABDOMEN. PRN MORPHINE 1MG INDICATED FOR SEVERE PAIN. EDUCATED PATIENT ON MEDICATION USES AND POTENTIAL SIDE EFFECTS, PATIENT ABLE TO VERBALIZE UNDERSTANDING, ADMINISTERED MEDICATION PER MD ORDER, PATIENT TOLERATED WELL. SAFETY AND FALL PRECAUTIONS IN PLACE, CALL LIGHT WITH PATIENT, WILL CONTINUE TO MONITOR.
--- NOTE | 2019-10-07 21:50 | NUR ---
TRANSFER OF CARE TRANSFER OF CARE TO SHALA RN, PATIENT RESTING IN BED, NO SIGN OF ACUTE DISTRESS, TOLERATING ROOM AIR, IV TO RIGHT AC INFUSING NS @60ML/HR, PATENT/BENIGN. SAFETY AND FALL PRECAUTIONS IN PLACE, BED LOCKED AND IN LOWEST POSITION, TWO SIDE RAILS UP, CALL LIGHT WITH PATIENT, CONTACT ISOLATION PRECAUTIONS IN PLACE.
--- NOTE | 2019-10-07 22:40 | NUR ---
ABDOMINAL DRESSING ABDOMINAL DRESSING CHANGED PER PATIENT REQUEST. ALL SARAHY AND TENSION SUTURES INTACT. NEW DRESSING APPLIED.
[2019-10-08 00:28] VITALS: BP_SYST 126
[2019-10-08] MEDS: VANCOMYCIN HCL ORAL SOLUTION 250 MG/5 ML, 80 ML PO SCH ×3 (02:07→13:54)
[2019-10-08] MEDS: NACL 0.9% 1,000 ML IV SCH (02:08)
[2019-10-08] MEDS: MORPHINE SULFATE 10 MG/ML VIAL IVP PRN ×2 (02:17→09:42)
--- NOTE | 2019-10-08 02:17 | NUR ---
PAIN MGT PATIENT MEDICATED WITH MORPHINE FOR C/O ABDOMINAL PAIN 02/24. VITAL SIGNS STABLE. CALL LIGHT WITH IN REACH.
[2019-10-08] MEDS: HYDROcodone/ACETAMIN 10-325 MG TAB PO PRN ×3 (04:25→17:27)
--- NOTE | 2019-10-08 04:25 | NUR ---
PAIN MGT PATIENT MEDICATED WITH NORCO ORDERED FOR C/O ABDOMINAL PAIN 12/25. CALL LIGHT WITH IN REACH.
[2019-10-08 06:18] LABS: BASOPHILS # (AUTO) 0.1 K/uL (0.0-0.2); BASOPHILS % (AUTO) 0.6 % (0.0-2.0); CALCIUM 8.5 mg/dL (8.4-11.0); CREATININE 0.61 mg/dL (0.55-1.30); EOSINOPHILS # (AUTO) 0.4 K/uL (0.0-0.4); EOSINOPHILS % (AUTO) 3.5 % (0.0-4.0); HEMATOCRIT 32.3 % (36-54); HEMOGLOBIN 10.6 g/dL (14.0-18.0); LYMPHOCYTES # (AUTO) 2.9 K/uL (1.0-5.5); LYMPHOCYTES % (AUTO) 28.5 % (20.5-51.5); MEAN CORPUSCULAR HEMOGLOBIN 29 pg (27-31); MEAN CORPUSCULAR HGB CONC 33 % (32-36); MEAN CORPUSCULAR VOLUME 87 fL (79.0-98.0); MONOCYTES # (AUTO) 1.1 K/uL (0.0-1.0); MONOCYTES % (AUTO) 10.8 % (1.7-9.3); NEUTROPHILS # (AUTO) 5.8 K/uL (1.8-7.7); NEUTROPHILS % (AUTO) 56.6 % (40.0-70.0); PLATELET COUNT (AUTO) 641 K/uL (130-430); POTASSIUM 3.6 mmol/L (3.5-5.1); RED CELL DISTRIBUTION WIDTH 14.7 % (9.0-15.0); WHITE BLOOD COUNT (AUTO) 10.2 K/uL (4.8-10.8)
--- NOTE | 2019-10-08 06:58 | NUR ---
CLOSING NOTES PATIENT NEEDS ATTENDED. IVF INFUSING WITH IV LINE INTACT AND PATENT. BED IN LOWEST LOCKED POSITION. CALL LIGHT WITH IN REACH.
[2019-10-08 08:00] VITALS: BP_SYST 119
--- NOTE | 2019-10-08 08:00 | NUR ---
initial notes rec patient awake alert and eating breakfast. denies pain at this time. resp easy and unlabored. no sob noted. bed to the lowest position and side rails up and locked. call light within reached.
[2019-10-08] MEDS: OLANZapine 10 MG TABLET PO SCH (09:14)
[2019-10-08] MEDS: CITALOPRAM HYDROBROMIDE 20 MG TABLET PO SCH (09:15)
--- NOTE | 2019-10-08 10:00 | NUR ---
rounds due meds were given and lon well. no sob noted.
--- NOTE | 2019-10-08 10:29 | NUR ---
CONSULTATION FOLLOW-UP REASON FOR CONSULTATION:POSITIVE C-DIFF WAS CONSULT CALLED?Y PERSON WHO WAS NOTIFIED:JOANIE CONSULTING PHYSICIAN:SHONDA SHERMAN [employer]IV[employer] CONSULTANT SPECIALTY:ID [employer] DELIVERY CONSULTANT PHONE NUMBER:[phone] ORDERING PHYSICIAN[facility]
--- NOTE | 2019-10-08 12:00 | NUR ---
rounds resting comfortably. no sob noted.
[2019-10-08 12:34] VITALS: BP_SYST 128
[2019-10-08] MEDS ORDERED: metroNIDAZOLE 500 mg/NS 100 ML IV SCH (14:00)
--- NOTE | 2019-10-08 14:05 | NUR ---
rounds abd xray portable done at bedside. pt was upset since dr russo dcd pain med morphine. requested for dr russo to be called and speak with him.
[2019-10-08] MEDS ORDERED: METOCLOPRAMIDE HCL 10 MG TABLET PO ONE (16:15)
--- NOTE | 2019-10-08 16:16 | NUR ---
rounds dr hoff was called for the result of the kub and with order. awaiting for dr rooney to call for any abx order then will call dr russo for d/c order.
[2019-10-08 17:00] VITALS: BP_SYST 125
--- NOTE | 2019-10-08 17:05 | NUR ---
rounds dr russo was called and informed him that dr hoff cleared the patient to go home.ordered the patient to go home with prescription and will call pt pharmacy for vancomycin med. pt made aware re dc order.
[2019-10-08] MEDS ORDERED: [UNRECOGNIZED DRUG - CODE] PO (17:24)
[2019-10-08] MEDS ORDERED: CEL20 PO (17:24)
[2019-10-08] MEDS ORDERED: OLAN10TA3 PO (17:24)
[2019-10-08] MEDS ORDERED: LACT1CAP57 PO (17:25)
--- NOTE | 2019-10-08 19:00 | NUR ---
closing notes endorsed to [facility] nurse re patient be d/c tonight. no osb noted. ivl was removed. dressing changed done. no sob noted.
[2019-10-08 19:02] VITALS: BP_SYST 125
--- NOTE | 2019-10-08 19:20 | NUR ---
Opening note Received patient awake, AOx4 resting in bed. No sign of distress and nonlabored breathing on room air and VSS. He is fully dressed in his clothes and awaiting discharge. Need to print discharge information and provided education. Bed is locked in lowest position, side rails up 2x and call light w/in reach. Contact precautions in place.
--- NOTE | 2019-10-08 20:05 | NUR ---
D/C Patient Patient given medication reconciliation form and D/C instructions. Exit Care provided. Patient verbalized understanding. MD discussed with patient the results and treatment provided. Ambulatory with steady gait for discharge to home. Patient in stable condition, ID band removed. No IV catheter, it was removed by BENJAMIN Hunt day shift RN. Rx of Casar given. Patient educated on pain management. All belongings sent with patient.
[2019-10-08] MEDS ORDERED: METOCLOPRAMIDE HCL 10 MG TABLET PO SCH (21:00)
== END 2019-10-08 20:05 | disposition home or self-care (01) | DRG 329 ==
LOC: SED 15:40 → SMU 18:01
PROVIDERS: ADMIT General Practice; ATTEND General Practice
PROC: 0DN80ZZ Release Small Intestine, Open Approach (ICD-10-PCS; 2019-10-01)
PROC: 0DS80ZZ Reposition Small Intestine, Open Approach (ICD-10-PCS; principal; 2019-10-01 13:10)
DX: K56.609 Unspecified intestinal obstruction, unspecified as to partial versus complete obstruction (principal); J18.9 Pneumonia, unspecified organism; E43 Unspecified severe protein-calorie malnutrition; A04.72 Enterocolitis due to Clostridium difficile, not specified as recurrent; E87.2 Acidosis; K56.2 Volvulus; E87.6 Hypokalemia; F15.10 Other stimulant abuse, uncomplicated; K21.9 Gastro-esophageal reflux disease without esophagitis; K31.9 Disease of stomach and duodenum, unspecified; F17.210 Nicotine dependence, cigarettes, uncomplicated; F32.9 Major depressive disorder, single episode, unspecified; Z78.9 Other specified health status; Z79.899 Other long term (current) drug therapy; Z90.49 Acquired absence of other specified parts of digestive tract; Z93.3 Colostomy status; Z68.24 Body mass index [BMI] 24.0-24.9, adult
CPT/HCPCS: 36415; 71045; 74018; 74250-TC; 80048; 80053; 80307; 81003; 83036; 83605; 83735-TC; 84132-TC; 85025; 85610-TC; 85730-TC; 86886; 86900; 86901; 87040-TC; 87081; 87086; 87230-TC; 94010; 94760; 96361; 96365; 96375; 99285; C9399; J0690; J1170; J2060; J2250; J2270; J2405; J2543; J2704; J3010; J3370; J3480; J3490; J7030; J7042; J7050; J7060; J7120; J8597; Q0161; Q9963; Q9964

== ENCOUNTER 2019-10-31 14:08 | Emergency (ER) | payer OTHER, MEDICAID ==
[~2019-10-31] VITALS: Ht 172.7 cm; Wt 81.6 kg
[~2019-10-31 14:08] MED LIST changes: -ACET-2165 PO; -ACET325T53 PO; -BEN50 PO; +CEL20 PO; -ESCI10TA PO; +LACT1CAP57 PO; -LORA1TAB PO; -MAG-151 PO; -MOM PO; +OLAN10TA3 PO; -PANT40TA4 PO; -THOR25 PO; -TRAZ-250 PO; -VIS50 PO; +[UNRECOGNIZED DRUG - CODE] PO
[2019-10-31] MEDS ORDERED: ASPI-524 PO (14:22)
[2019-10-31] MEDS ORDERED: THOR25 PO (14:22)
[2019-10-31 14:23] VITALS: BP_SYST 151
== END 2019-10-31 14:59 | disposition home or self-care (01) ==
LOC: SED 14:08
DX: Z48.02 Encounter for removal of sutures (principal); F41.9 Anxiety disorder, unspecified; Z79.899 Other long term (current) drug therapy; Z79.82 Long term (current) use of aspirin
CPT/HCPCS: 99281; 99282

== ENCOUNTER 2020-01-22 18:32 | Emergency (ER) | payer MEDICAID, OTHER ==
[~2020-01-22] VITALS: Ht 175.3 cm; Wt 81.6 kg
[~2020-01-22 18:32] MED LIST changes: +ASPI-524 PO; +THOR25 PO
[2020-01-22 18:45] VITALS: BP_SYST 140
--- NOTE | 2020-01-22 18:49 | NUR ---
Patient triaged and placed in waiting room. VSS and patient appears in no acute distress at this time. Awaiting available bed, and MD notified of need for MSE.
== END 2020-01-22 19:10 | disposition left against medical advice (07) ==
LOC: SED 18:32
DX: L02.211 Cutaneous abscess of abdominal wall (principal); Z53.21 Procedure and treatment not carried out due to patient leaving prior to being seen by health care provider

== ENCOUNTER 2020-01-23 09:06 | Emergency (ER) | payer MEDICAID, OTHER ==
[~2020-01-23] VITALS: Ht 175.3 cm; Wt 81.6 kg
[2020-01-23 09:16] VITALS: BP_SYST 142
--- NOTE | 2020-01-23 09:55 | NUR ---
Patient to ER [facility] for evaluation.
--- NOTE | 2020-01-23 09:56 | NUR ---
ER Dr. Tellez at bedside examining patient.
--- NOTE | 2020-01-23 10:05 | NUR ---
Pt being evaluated for possible hernia. Pt has hx of hernia repair in the past has recently noticed a mass in his abdomen after excersize. Pt denies any pain, N/V or any other symptoms at this time.
[2020-01-23 10:10] VITALS: BP_SYST 142
--- NOTE | 2020-01-23 10:10 | NUR ---
Patient given written and verbal discharge instructions by MD and verbalizes understanding. ER MD discussed with patient the results and treatment provided. Patient in stable condition. ID arm band removed. IV catheter removed intact and dressing applied, no active bleeding. Patient educated on pain management and to follow up with PMD. Pain Scale 0/10. Opportunity for questions provided and answered. Medication side effect fact sheet provided.
== END 2020-01-23 10:10 | disposition home or self-care (01) ==
LOC: SED 09:06
DX: K43.9 Ventral hernia without obstruction or gangrene (principal); F17.210 Nicotine dependence, cigarettes, uncomplicated; Z71.6 Tobacco abuse counseling; Z79.899 Other long term (current) drug therapy
CPT/HCPCS: 99281

== ENCOUNTER 2020-02-12 11:21 | Outpatient (CLI) | payer BC, OTHER, MEDICAID ==
[2020-02-12] MEDS ORDERED: DIATR MEGLU/DIATRIZ SOD 30 ML SOLUTION PO ONE (12:11)
[2020-02-12 12:44] LABS: CREATININE 0.97 mg/dL (0.55-1.30)
[2020-02-12] MEDS ORDERED: IOHEXOL 100 ML IV ONE (13:44)
== END 2020-02-12 19:19 | disposition home or self-care (01) ==
LOC: SCT 11:21
PROVIDERS: ATTEND Surgery
DX: K43.9 Ventral hernia without obstruction or gangrene (principal); R10.2 Pelvic and perineal pain
CPT/HCPCS: 36415; 74177; 82565; 84520; Q9964; Q9967

== ENCOUNTER 2023-04-25 09:33 | Inpatient (IN) | payer OTHER, MEDICAID ==
[~2023-04-25] VITALS: Ht 175.3 cm; Wt 63.5 kg
[2023-04-25 09:58] VITALS: BP_SYST 100; PULSE 100; RESP 18; TEMP 97.8; O2SAT 99
[2023-04-25 10:36] LABS: BASOPHILS # (AUTO) 0.1 K/uL (0.0-0.2); BASOPHILS % (AUTO) 0.6 % (0.0-2.0); EOSINOPHILS % (AUTO) 0.2 % (0.0-4.0); HEMATOCRIT 33.7 % (36-54); HEMOGLOBIN 9.9 g/dL (14.0-18.0); LYMPHOCYTES # (AUTO) 2.3 K/uL (1.0-5.5); LYMPHOCYTES % (AUTO) 16.9 % (20.5-51.5); MEAN CORPUSCULAR HEMOGLOBIN 22 pg (27-31); MEAN CORPUSCULAR HGB CONC 29 % (32-36); MEAN CORPUSCULAR VOLUME 76 fL (79.0-98.0); MONOCYTES # (AUTO) 1.1 K/uL (0.0-1.0); NEUTROPHILS # (AUTO) 10.2 K/uL (1.8-7.7); PLATELET COUNT (AUTO) 395 K/uL (130-430); RED BLOOD CELL COUNT(AUTO) 4.43 MIL/uL (4.2-6.2); RED CELL DISTRIBUTION WIDTH 17.1 % (9.0-15.0); WHITE BLOOD COUNT (AUTO) 13.8 K/uL (4.8-10.8)
[2023-04-25 10:41] LABS: ALBUMIN 3.4 g/dL (3.4-4.8); CALCIUM 8.4 mg/dL (8.4-11.0); CREATININE 1.09 mg/dL (0.55-1.30); POTASSIUM 3.1 mmol/L (3.5-5.1); TOTAL BILIRUBIN 0.3 mg/dL (0.0-1.0); TOTAL PROTEIN, SERUM 8.1 g/dL (6.4-8.3)
[2023-04-25 11:17] LABS: NEUTROPHILS % (AUTO) 74.3 % (40.0-70.0)
[2023-04-25] MEDS ORDERED: NACL 0.9% 1,000 ML IV ONE (13:45)
[2023-04-25] MEDS ORDERED: MAGNESIUM SULFATE 50 ML IV PRN (16:30)
[2023-04-25] MEDS: D5NS 1,000 ML IV SCH (16:30)
[2023-04-25] MEDS ORDERED: DOCUSATE SODIUM 100 MG CAPSULE PO PRN (16:30)
[2023-04-25] MEDS ORDERED: MORPHINE 2 MG/ML INJ. SYRINGE IVP PRN ×2 (16:30)
[2023-04-25] MEDS ORDERED: MUPIROCIN 2% TOPICAL OINTMENT 22 GM NS PRN (16:30)
[2023-04-25] MEDS ORDERED: POTASSIUM CHLORIDE 20 MEQ TAB.PRT.SR PO PRN (16:30)
[2023-04-25] MEDS ORDERED: LORazepam 2 MG/ML VIAL IVP PRN (16:30)
[2023-04-25] MEDS ORDERED: ONDANSETRON HCL 4 MG/2 ML VIAL IVP PRN (16:30)
[2023-04-25] MEDS ORDERED: ZOLPIDEM TARTRATE 5 MG TABLET PO PRN (16:30)
[2023-04-25] MEDS ORDERED: ACETAMINOPHEN 325 MG TABLET PO PRN (16:30)
[2023-04-25] MEDS ORDERED: PANTOPRAZOLE SODIUM 40 MG/VIAL (PROTONIX) IVP ONE (16:45)
[2023-04-25 17:11] LABS: TOTAL IRON BIND. CAPACITY 470 ug/dL (250-450)
[2023-04-25] MEDS ORDERED: POTASSIUM CHLORIDE 40 MEQ in NS 250 ML IV ONE (18:00)
[2023-04-25 20:00] VITALS: O2SAT 99
[2023-04-25] MEDS ORDERED: PANTOPRAZOLE SODIUM 40 MG/VIAL (PROTONIX) IVP SCH (21:00)
[2023-04-26 01:00] VITALS: BP_SYST 107; PULSE 52; RESP 18; TEMP 98
[2023-04-26] MEDS: D5NS 1,000 ML IV SCH (05:00)
[2023-04-26] MEDS ORDERED: MORPHINE 2 MG/ML INJ. SYRINGE IVP PRN (08:15)
[2023-04-26] MEDS ORDERED: THORAZINE (chlorproMAZINE) 25 MG TAB PO SCH (09:00)
[2023-04-26] MEDS ORDERED: HALOPERIDOL LACTATE 5 MG/ML VIAL IM SCH (09:00)
[2023-04-26] MEDS ORDERED: CITALOPRAM HYDROBROMIDE 20 MG TABLET PO SCH (09:00)
[2023-04-30 09:06] LABS: FOLATE (FOLIC ACID) 14.9 ng/mL (>3.0)
== END 2023-04-26 09:05 | disposition left against medical advice (07) | DRG 641 ==
LOC: SED 09:33 → SMU 16:22
PROVIDERS: ADMIT General Practice; ATTEND General Practice
DX: E87.6 Hypokalemia (principal); K92.2 Gastrointestinal hemorrhage, unspecified; D50.9 Iron deficiency anemia, unspecified; E86.0 Dehydration; F20.9 Schizophrenia, unspecified; Z53.29 Procedure and treatment not carried out because of patient's decision for other reasons; K42.9 Umbilical hernia without obstruction or gangrene; J44.9 Chronic obstructive pulmonary disease, unspecified; F41.9 Anxiety disorder, unspecified; F32.A Depression, unspecified; D72.829 Elevated white blood cell count, unspecified; Z91.199 Patient's noncompliance with other medical treatment and regimen due to unspecified reason; Z91.148 Patient's other noncompliance with medication regimen for other reason; Z90.49 Acquired absence of other specified parts of digestive tract
CPT/HCPCS: 36415; 76376; 80053; 82607; 82728; 82746; 83037; 83540; 83550; 83735; 85025; 86886; 86900; 86901; 96361; 96365; 96375; 99285; C9113; J3480; J7050

== ENCOUNTER 2023-07-06 22:36 | Emergency (ER) | payer OTHER, MEDICAID ==
[~2023-07-06] VITALS: Ht 175.3 cm; Wt 68.0 kg
[2023-07-06 22:50] VITALS: BP_SYST 127; PULSE 90; RESP 19; TEMP 97.6; O2SAT 97
[2023-07-06] MEDS ORDERED: IBUPROFEN 600 MG TABLET PO ONE (23:45)
[2023-07-06] MEDS ORDERED: ACETAMINOPHEN 325 MG TABLET PO ONE (23:45)
[2023-07-07 06:20] VITALS: BP_SYST 123; PULSE 81; RESP 15; TEMP 97.2; O2SAT 97
== END 2023-07-07 06:20 | disposition home or self-care (01) ==
LOC: SED 22:36
DX: K43.9 Ventral hernia without obstruction or gangrene (principal); Z79.899 Other long term (current) drug therapy
CPT/HCPCS: 76376; 99284